=== PATIENT | female | born 1970 | race Caucasian/White ===

== ENCOUNTER 2019-12-22 20:38 | Inpatient (IN) | payer OTHER ==
--- OUTSIDE RECORDS SUMMARY | 2019-12-22 20:40 | XMS REPORT | Clinical Summary ---
:1970 Author Organization [facility] Address [address] [place] [address] Care Team Providers Name Role Phone Marcio MurrayLily Primary Care Provider Unavailable Allergies Active Allergy Reactions Severity Noted Date Comments Penicillins Rash Low 08/15/2016 Medications Medication Sig Dispensed Refills Start Date End Date Status sitaGLIPtin-metFORM Take 1 tablet by 0 Active IN (JANUMET) mouth 2 (two) times 50-1,000 mg per daily with breakfast tablet and dinner. amLODIPine Take 5 mg by mouth 0 Active (NORVASC) 10 MG daily. tablet pravastatin Take 20 mg by mouth 0 Active (PRAVACHOL) 20 MG daily. tablet DULoxetine Take 30 mg by mouth 0 Active (CYMBALTA) 30 MG daily. capsule insulin detemir Inject subcutaneously 0 Active (LEVEMIR) 100 nightly. unit/mL (3 mL) InPn injection fluconazole Take 150 mg by mouth 0 Active (DIFLUCAN) 150 MG once. tablet traMADol (ULTRAM) Take 50 mg by mouth 0 Active 50 mg tablet every 6 (six) hours as needed for Pain. celecoxib Take 200 mg by mouth 0 Active (CELEBREX) 200 MG daily. capsule gabapentin Take 300 mg by mouth 0 Active (NEURONTIN) 300 MG 3 (three) times capsule daily. acetaminophen-codei Take 1 tablet by 30 tablet 0 08/17/2016 Active ne (TYLENOL #3) mouth every 4 (four) 300-30 mg per hours as needed for tablet Pain. Max Daily Amount: 6 tablets Active Problems Problem Noted Date Infective otitis externa, left 08/15/2016 Diabetes mellitus Hypertension Hyperlipidemia Social History Tobacco Use Types Packs/Day Years Used Date Never Smoker Alcohol Use Drinks/Week oz/Week Comments No Sex Assigned at Date Recorded Not on file Job Start Date Occupation Industry Not on file Not on file Not on file Travel History Travel Start Travel End No recent travel history available. Last Filed Vital Signs Not on file Plan of Treatment Not on file Results Not on fileafter 12/21/2018 Insurance Payer Benefit Plan / Group Subscriber ID Type Phone A ddress [employer] - [employer] C[employer] HMO POS QPOS xxxxxxxxxx HMO/POS Advance Directives For more information, please contact:[address] [phone] Code Status Date Activated Date Inactivated Comments Full Code 08/15/2016 5:48 PM 08/17/2016 5:52 PM This code status was determined by: Patient
--- OUTSIDE RECORDS SUMMARY | 2019-12-22 20:45 | XMS REPORT | Continuity of Care Document ---
:1970 Author Organization [facility] t Address [address] [place] [address] Care Team Providers Name Role Phone Artemio Murray Primary Care Physician Unavailable DR AISLINN Attending Clinician Unavailable Kale Hilliard Attending Clinician William Mckeon Attending Clinician Ayaka Thornton Attending Clinician MOMO Attending Clinician Unavailable Dennis Pink Attending Clinician DR JOESPH Attending Clinician Unavailable Levar Carney Attending Clinician Artemio Francois Attending Clinician DR AISLINN Admitting Clinician Unavailable DR JOESPH Admitting Clinician Unavailable Problems Condition Condition Condition Status Onset Resolution Last Treating Co mments Source Name Details Category Date Date Treatment Clinician Date PELVIC Diagnosis Active 2019-11-02 Mem oria FLOOR 07-16 16:21:00 l PELVIC 08:00: Luis Antonio FLOOR 00 [facility] Diagnosis Active 2018-072019-06-18 Mem oria FLOOR 08-06 13:00:00 l DYSPAREUNI PELVIC 08:00: Herm ramon A,VAGINISM FLOOR 00 US,IBS, DYSPAREUNI A,VAGINISM US,IBS, Active 06/06/2019 [facility] MUS[facility] Diagnosis Active 2019-07-31 Mem oria WEAKNESS - 10:57:00 l MUSCLE 08:00: Luis Antonio WEAKNESS 00 Active 07/16/2018 [facility] Z01.818 - Diagnosis Active 2017-072018-06-10 Memoria ENCOUNTER 07-31 10:54:00 l FOR OTHER Z01.818 00:01: Herm ramon PREPROCEDU - 00 ENCOUNTER FOR OTHER PREPROCEDU Active 05/31/2018 LE[facility] [place] [facility] Disease Active [facility] ot[facility] 08[facility]15 [facility] externa, [facility]: Medica l left left 00 Center KNEE PAIN, Condition Active 2015-01-13 Memoria BILATERAL 01-13 11:20:00 l KNEE 00:00: [place] PAIN, 00 BILATERAL Active 01/13/2015 [facility] ARTHRALGIA Condition Active 2015-01-13 Memoria 01-13 11:20:00 l 00:00: Luis Antonio ARTHRALGIA 00 Active 01/13/2015 [facility] RASH Condition Active 2015-01-13 Mem oria 01-13 11:20:00 l RASH 00:00: Luis Antonio 00 Active 01/13/2015 [facility] SYSTEMIC Condition Active 2015-01-13 M emoria LUPUS 01-13 11:20:00 l ERYTHEMATO SYSTEMIC 00:00: He rmann MARLEY, LUPUS 00 FAMILY HX ERYTHEMATO MARLEY, FAMILY HX Active 01/13/2015 [facility] URINALYSIS Condition Active 2015-01-13 Memoria , ABNORMAL 12-14 11:20:00 l 00:00: Luis Antonio URINALYSIS 00 , ABNORMAL Active 12/14/2014 [facility] ALLERGIC Condition Active 2015-01-13 M emoria DRUG 11-16 11:20:00 l REACTION ALLERGIC 00:00: Herm ramon DRUG 00 REACTION Active 11/16/2014 [facility] IMPETIGO Condition Active 2015-01-13 M emoria 11-09 11:20:00 l IMPETIGO 00:00: Satish n 00 Active 11/09/2014 [facility] Allergic Problem Active 2019-11-17 Mem oria rhinitis 3 22:07:53 l (disorder) Allergic 00:00: He rmann rhinitis 00 (disorder) Active 10/13/2014 Problem 11/17/2019 Data migrated from [employer] on 01/20/15.Kobe a migrated from [employer] on 12/15/14. Medical Group,[facility], LEELA Harris,M [facility] [place] [facility] Migraine Problem Active 2019-11-17 Mem oria (disorder) 10-13 22:07:53 l Migraine 00:00: Satish n (disorder) 00 Active 10/13/2014 Problem 11/17/2019 Data migrated from [employer] on 01/20/15.Kobe a migrated from [employer] on 12/15/14. Medical Group,[facility], LEELA Harris,M [facility] [place] [facility] Postsurgic Problem Active 2019-11-17 M emoria al 10-13 22:07:53 l menopause 00:00: Luis Antonio (disorder) Postsurgic 00 al menopause (disorder) Active 10/13/2014 Problem 11/17/2019 Data migrated from [employer] on 01/20/15.Kobe a migrated from [employer] on 12/15/14. Medical Group,[facility], LEELA Harris,[facility] [place] [facility] SURGICAL Condition Active 2015-01-13 M emoria MENOPAUSE 10-13 11:20:00 l SURGICAL 00:00: Satish n MENOPAUSE 00 Active 10/13/2014 Condition 5 [facility] MIGRAINE Condition Active 2015-01-13 M emoria HEADACHE 10-13 11:20:00 l MIGRAINE 00:00: Satish n HEADACHE 00 Active 10/13/2014 Condition [facility] ALLERGIC Condition Active 2015-01-13 M emoria RHINITIS 10-13 11:20:00 l ALLERGIC 00:00: Satish n RHINITIS 00 Active 10/13/2014 Condition 5 [facility] Fatigue Problem Active 2013-072019-11-17 John maria elena (finding) 22:07:53 l Fatigue 00:00: Luis Antonio (finding) 00 Active 07/15/2014 Problem 11/17/2019 Data migrated from [employer] on 12/15/14. Medical Group,[facility], LEELA Harris,[facility] [place] [facility] FATIGUE Condition Active 2013-072015-01-13 Me moria 11:20:00 l FATIGUE 00:00: Luis Antonio 00 Active 07/15/2014 Condition 5 [facility] Angle-clos Problem Active 2019-11-17 M emoria ure 07-30 22:07:53 l glaucoma 00:00: [place] (disorder) Angle-clos 00 ure glaucoma (disorder) Active 07/30/2013 Problem 11/17/2019 Data migrated from [employer] on 12/15/14. Medical Group,[facility], LEELA Harris,[facility] [place] [facility] Hypertensi Problem Active 2019-11-17 M emoria ve 07-30 22:07:53 l disorder, 00:00: Luis Antonio systemic Hypertensi 00 arterial ve (disorder) disorder, systemic arterial (disorder) Active 07/30/2013 Problem 11/17/2019 Data migrated from [employer] on 12/15/14. [facility] [place] [facility] ANGLE-CLOS Condition Active 2015-01-13 Memoria URE 07-30 11:20:00 l GLAUCOMA 00:00: Luis Antonio ANGLE-CLOS 00 URE GLAUCOMA Active 07/30/2013 Condition 5 [facility] HYPERTENSI Condition Active 2015-01-13 Memoria ON 07-30 11:20:00 l 00:00: [place] HYPERTENSI 00 ON Active 4 Condition 01/13/2015 Medical Group Anemia Problem Active 2012-072019-11-17 Memor ia (disorder) 0-03 22:07:53 l Anemia 00:00: Luis Antonio (disorder) 00 Active 04/17/2013 Problem 11/17/2019 Data migrated from [employer] on 12/15/14. [facility] Group,[facility], LEELA Harris,[facility] [place] [facility] Brachial Problem Active 2012-072019-11-17 Mem oria neuritis 0-03 22:07:53 l (disorder) Brachial 00:00: He rmann neuritis 00 (disorder) Active 04/17/2013 Problem 11/17/2019 Data migrated from [employer] on 12/15/14. Medical Group,[facility] [place] [facility] Hyperlipid Problem Active 2012-072019-11-17 M emoria emia 0-03 22:07:53 l (disorder) 00:00: Satish n Hyperlipid 00 emia (disorder) Active 04/17/2013 Problem 11/17/2019 Data migrated from [employer] on 12/15/14. Medical Group,[facility], LEELA Harris,[facility] [place] [facility] Type II Problem Active 2012-072019-11-17 John maria elena diabetes 0-03 22:07:53 l mellitus Type II 00:00: Анна nn uncontroll diabetes 00 ed mellitus (finding) uncontroll ed (finding) Active 04/17/2013 Problem 11/17/2019 Data migrated from [employer] on 12/15/14. Medical Group,[facility], LEELA Harris,[facility] [place] [facility] DIABETES Condition Active 2012-072015-01-13 M emoria MELLITUS, 0-03 11:20:00 l TYPE II, DIABETES 00:00: Herm ramon UNCONTROLL MELLITUS, 00 ED TYPE II, UNCONTROLL ED Active 3 Condition 01/13/2015 Medical Group BRACHIAL Condition Active 2012-072015-01-13 M emoria NEURITIS 0-03 11:20:00 l OR BRACHIAL 00:00: Satish n RADICULITI NEURITIS 00 S NOS OR RADICULITI S NOS Active 04/17/2013 Condition [facility] HYPERLIPID Condition Active 2012-072015-01-13 Memoria EMIA 0-03 11:20:00 l 00:00: Luis Antonio HYPERLIPID 00 EMIA Active 04/17/2013 Condition [facility] SHOULDER Condition Active 2012-072015-01-13 M emoria PAIN, 0-03 11:20:00 l CHRONIC SHOULDER 00:00: Анна nn PAIN, 00 CHRONIC Active 04/17/2013 Condition [facility] ANEMIA Condition Active 2012-072015-01-13 Mem oria 0-03 11:20:00 l ANEMIA 00:00: [place] 00 Active 04/17/2013 Condition 5 [facility] History of History of Problem Resolve Univers diabetes diabetes d ity of mellitus mellitus [place] [facility] History of History of Problem Resolve Univers high high d ity [place] cholester[place] [facility] History of History of Problem Resolve Univers hypertensi hypertensi d it y of on on [place] [facility] History of History of Problem Resolve Univers hypothyroi hypothyroi d it y of dism dism [place] [facility] History of History of Problem Resolve Univers Nerve pain Nerve pain d it y of [place] [facility] History of History of Problem Resolve Univers obesity obesity d ity of [place] [facility] Urinary Urinary Problem Active Univers incontinen incontinen it y of ce in ce in [place] female female Physici ans Urinary Urinary Problem Active Univers symptom or symptom or it y of sign sign [place] [facility] Urgency of Urgency of Problem Active U nivers urination urination ity of [place] [facility] Urgency Urgency Problem Active Univers incontinen incontinen it y of ce ce [place] [facility] Frequency Frequency Problem Active Uni vers of of [place] of [place] [facility] [place] Nocturia Nocturia Problem Active Unive rs ity of [place] [facility] Dyspareuni Dyspareuni Problem Active U nivers a, female a, female ity of [place] [facility] Pelvic Pelvic Problem Active Univers floor floor ity of dysfunctio [place]funct[place] [facility] Levator Levator Problem Active Univers spasm spasm ity of [place] [facility] Irritable Irritable Problem Active Uni vers bowel bowel ity of syndrome syndrome [place] with both with both Phys ici constipati constipati an s on and on and diarrhea diarrhea Diabetes Diabetes Disease Active [facility] mellitus mellitus [facility] Encounter Problem 2018-12-29 [place] for 11:13:36 l screening [place] mammogram Encounter for for malignant screening neoplasm mammogram of breast for malignant neoplasm of breast 12/29/2018 LEELA Harris Breast Problem Resolve 2019-11-17 John maria elena neoplasm d 22:07:53 l screening Breast Анна nn status neoplasm (finding) screening status (finding) Resolved Problem 11/17/2019 Medical Group, Courtney Patel [facility] Neutrophil Problem Resolve 2019-11-17 Memoria ia d 22:07:53 l (disorder) Satish n Neutrophil ia (disorder) Resolved Problem 11/17/2019 Medical Group, Courtney Patel [facility] [place] [facility] Patient Problem Resolve 2019-11-17 Mem oria encounter d 22:07:53 l status Patient Luis Antonio (finding) encounter status (finding) Resolved Problem 11/17/2019 Medical Group, LEELA Harris,[facility] [place] [facility] Sinusitis Problem Resolve 2019-11-17 M emoria (disorder) d 22:07:53 l Luis Antonio Sinusitis (disorder) Resolved Problem 11/17/2019 Medical Group, LEELA Harris,[facility] [place] [facility] Morbid Problem Active 2019-11-17 Memor ia obesity 22:07:53 l (disorder) Morbid Herm ramon obesity (disorder) Active Problem 11/17/2019 Medical Group, [facility] [place] [facility] Weight Problem Active 2019-11-17 Memor ia gain 22:07:53 l finding Weight Luis Antonio (finding) gain finding (finding) Active Problem 11/17/2019 Medical Group, [facility] [place] [facility] Chronic Problem Active 2019-11-17 John maria elena pain 22:07:53 l (finding) Chronic Herm ramon pain (finding) [facility]17[facility] [place] [facility] Hypothyroi Problem Active 2019-11-17 M emoria dism 22:07:53 l (disorder) Satish n Hypothyroi dism (disorder) Active Problem 11/17/2019 Medical Group 719.46 Diagnosis Active 2015-01-13 Mem oria 09:57:00 l 719.46 Luis Antonio Active [facility] Allergies, Adverse Reactions, Alerts Allergy Allergy Status Severity Reaction(s) Onset Inactive Treating Comm ents Source Name Type Date Date Clinician Penicill Drug Active Rash [facility] cephalex cephalex Active Memori a in<sup>2 in<sup>2 3-31 l </sup> </sup> 05:00: [place] CEPHALEX CEPHALEX Active Memori a IN IN 3-31 l 00:00: [place] penicill penicill Active 2012-07 Memori a ins<sup> ins<sup> 0-03 l 1</sup> 1</sup> 05:00: [place] PCN PCN Active 2012-07 Memoria 0-03 l 00:00: Luis Antonio 00 Penicill drug Active Univers ins allergy ity of [place] [facility] clindamy drug Active Univers kelle allergy ity of [place] [facility] Family History Family Member Diagnosis Comments Start Date Stop Date Source Unknown Family Family history of Family History University of Member arthritis [place] [facility] Social History Social Habit Start Date Stop Date Quantity Comments Source Sex Assigned At [facility] Social History 2015-01-14 2015-01-14 [facility] 04:59:00 04:59:00 Smoking Status Start Date Stop Date Source Social History [facility] Medications Ordered Filled Start Stop Current Ordering Indication Dosage Frequency Signature Comments Components Source Medication Medication Date Date Medication? Clinician (SIG) Name Name 3 ML 2019-0 Yes 25 unit, Memoria insulin 5-01 SUB-Q, l detemir 100 19:18: Bedtime, # [place] UNT/ML 00 15 mL, 3 Prefilled Refill(s), Syringe Pharmacy: [Levemir] [facility] #[id number] 24 HR 2019-0 Yes 50 mg = 1 Memoria mirabegron 3-25 tab, PO, l 50 MG 13:00: Daily, per Satish n Extended 00 urogyn, # Release 30 tab, 0 Tablet Refill(s) [Myrbetriq] levothyroxi 2019-0 Yes 75 Memori a ne 75 mcg 3-25 microgram l (0.075 mg) 12:56: = 1 tab, Her oates oral tablet 00 PO, Daily, # 90 tab, 1 Refill(s), Pharmacy: [facility] #[id number] Metformin 2020-0 Yes 1 tab, PO, Me moria hydrochlori 3-25 BID, # 180 l de 1000 MG 12:56: tab, 1 Анна nn / 00 Refill(s), sitagliptin Pharmacy: 50 MG Oral [facility] [Froylanumet #[id number] ] pravastatin 2020-0 Yes 20 mg = 1 M emoria 20 mg oral 3-25 tab, PO, l tablet 12:56: Bedtime, # Анна nn 00 90 tab, 3 Refill(s), Pharmacy: [facility] #[id number] 3 ML 2019-0 Yes 25 units, Memoria Insulin 3-25 SUB-Q, l Glargine 12:55: Bedtime, # Her oates 100 UNT/ML 00 10 ea, 3 Prefilled Refill(s), Syringe Pharmacy: [Lantus] [facility] #[id number] 0.5 ML 2019- Yes 1.5 mg, Memoria dulaglutide 3-25 SUB-Q, l 3 MG/ML 12:54: qWeek, # 6 Herm ramon Prefilled 00 mL, 1 Syringe Refill(s), [Trulicity] Pharmacy: [facility] #[id number] benazepril Yes 20 mg = 1 Me moria 20 mg oral 3-25 tab, PO, l tablet 12:54: Daily, # [place] 00 90 tab, 1 Refill(s), Pharmacy: [facility] #[id number] Myrbetriq Myrbetriq 2018-07 Yes GLENN QD TAKE 1 U nivers 50 MG Oral 50 MG Oral 2-27 DOUGHER TABLET ity of Tablet Tablet 00:00: D.O. DAILY [place] Extended Extended Physici Release 24 Release 24 ans Hour Hour Trokendi XR Trokendi XR 2018-07 Yes Univers 50 MG Oral 50 MG Oral 1-13 ity of Capsule Capsule 00:00: [place] Extended Extended 00 Physici Release 24 Release 24 ans Hour Hour Horizant Horizant 2018-07 Yes Unive rs 600 MG Oral 600 MG Oral 13 i ty of Tablet Tablet 00:00: [place] Extended Extended 00 Physici Release Release ans oxyCODONE-A oxyCODONE-A 2018-07 Yes Univers cetaminophe cetaminophe 13 i ty of n 5-325 MG n 5-325 MG 00:00: [place] Oral Tablet Oral Tablet 00 P hysici ans Janumet Janumet 2018-07 Yes Univers 50-1000 MG 50-1000 MG -13 ity of Oral Tablet Oral Tablet 00:00: [place] 00 Physici ans Lantus Lantus 2018-07 Yes Univers SoloStar SoloStar 13 ity of 100 UNIT/ML 100 UNIT/ML 00:00: [place] Subcutaneou Subcutaneou 00 P hysici s Solution s Solution ans Pen-injecto Pen-injecto r r Trulicity Trulicity 2018-07 Yes Uni vers 1.5 1.5 1-13 ity of MG/0.5ML MG/0.5ML 00:00: [place] Subcutaneou Subcutaneou 00 P hysici s Solution s Solution ans Pen-injecto Pen-injecto r r Pravastatin Pravastatin 2018-07 Yes Univers Sodium 20 Sodium 20 07-28 ity o f MG Oral MG Oral 00:00: [place] Tablet Tablet 00 Physici ans Benazepril Benazepril 2018-07 Yes U nivers HCl - 10 MG HCl - 10 MG 07-28 i ty of Oral Tablet Oral Tablet 00:00: [place] 00 Physici ans Levothyroxi Levothyroxi 2018-07 Yes Univers ne Sodium ne Sodium 07-28 ity o f 75 MCG Oral 75 MCG Oral 00:00: [place] Tablet Tablet 00 Physici ans Phentermine Phentermine 2018-07 Yes Univers HCl - 37.5 HCl - 37.5 07-28 ity of MG Oral MG Oral 00:00: [place] Capsule Capsule 00 Physici ans DULoxetine DULoxetine 2018-07 Yes U nivers HCl - 30 MG HCl - 30 MG 07-28 i ty of Oral Oral 00:00: [place] Capsule Capsule 00 Physici Delayed Delayed ans Release Release Particles Particles Acetaminoph 2018-07 Yes 1 tab, PO, Memoria en 325 MG / 0-30 Q6H, 0 l Oxycodone 16:41: Refill(s) Her oates Hydrochlori 00 de 5 MG Oral Tablet gabapentin 2018-07 Yes 600 mg = 1 M emoria enacarbil 0-30 tab, PO, l 600 MG 16:41: Daily, # Luis Antonio Extended 00 90 tab, 1 Release Refill(s) Tablet [Horizant] Ketorolac 2018-07 Yes = 1 spray, Me moria Tromethamin 0-30 NASAL, l e 15.8 16:41: Q12H, 0 [place] MG/ACTUAT 00 Refill(s) Metered Dose Nasal [place] [Sprix] levothyroxi Yes 75 Memori a ne 75 mcg 9-27 microgram l (0.075 mg) 21:07: = 1 tab, Her oates oral tablet 00 PO, Daily, # 90 tab, 1 Refill(s), Pharmacy: [facility] #[id number] pravastatin Yes 20 mg = 1 M emoria 20 mg oral 9-25 tab, PO, l tablet 12:50: Bedtime, # Анна nn 59 90 tab, 3 Refill(s), Pharmacy: [facility] #[id number] Phentermine Yes 37.5 mg = Courtney poe Hydrochlori 9-25 1 tab, PO, l de 37.5 MG 12:50: Daily, X Her oates Oral Tablet 00 90 day, # 90 tab, 1 Refill(s) 3 ML Yes See Memoria Insulin 4-12 Instructio l Glargine 21:12: ns, # 3 Satish n 100 UNT/ML 13 mL, Prefilled ADMINISTER Syringe 20 UNITS [Lantus] UNDER THE SKIN AT NIGHT AND AT BEDTIME, Pharmacy: [facility] [id number] DME Yes See Memoria Prescriptio 1-03 Instructio l n 13:28: ns, MISC, [place] 00 ONCE, disability parking placard use for designated parking, # 2 ea, 0 Refill(s) Azithromyci 2017-07 No See Memori a n 5 Day 2-05 Instructio l Dose Pack 16:44: ns, Take 2 He rmann 250 mg oral 00 tablets by tablet mouth the first day then 1 tablet by mouth days 2-5., X 5 day, # 6 tab, 0 Refill(s), [id number] {2017-07 Yes See Memoria (Methylpred 2-05 Instructio l nisolone 4 16:44: ns, PO, Herm ramon MG Oral 00 Take by Tablet mouth as [Medrol]) } directed Pack on label., [Medrol # 1 Pack, Dosepak] 0 Refill(s), [id number] Acetaminoph 2017-07 Yes 1 tab, PO, Memoria en 325 MG / 2-05 Q8H, PRN l Hydrocodone 15:47: Pain, # 30 Luis Antonio Bitartrate 00 tab, 0 10 MG Oral Refill(s) Tablet pravastatin 2017-07 Yes See Memori a 20 mg oral 1-30 Instructio l tablet 04:45: ns, TAKE 1 Анна nn 00 TABLET BY MOUTH EVERY DAY, # 90 tab, 3 Refill(s), Pharmacy: [facility] [id number] Insulin Pen 2017-07 Yes 1 ea, Memor ia [place] 1-16 MISC, l Misc/Other 20:37: Daily, for H ermann 00 use with lantus, # 100 ea, 1 Refill(s), [id number] 3 ML 2017-07 No 20 unit, Memoria Insulin 1-16 SUB-Q, l Glargine 20:37: Bedtime, # Her oates 100 UNT/ML 00 3 mL, 3 Prefilled Refill(s), Syringe Pharmacy: [Lantus] [facility] [id number] duloxetine 2017-07 Yes 90 mg = 3 Me moria 30 MG 1-16 cap, PO, l Enteric 20:21: Daily, # Satish n Coated 00 180 cap, 0 Capsule Refill(s) [Cymbalta] Naloxone 2017-07 Yes = 1 spray, Mem oria Hydrochlori 1-16 NASAL, l de 40 MG/ML 20:21: ONCE, # 2 H ermann Nasal [place] 00 spray, 0 [Narcan] Refill(s), may repeat in other nostril if patient does not respond tramadol 2017-07 Yes 50 mg = 1 John maria elena hydrochlori 1-16 tab, PO, l de 50 MG 20:21: BID, # 180 Her oates Oral Tablet 00 tab, 1 Refill(s) acetaminoph 2017-07 Yes 2 tab, PO, Memoria en-codeine 1-16 Q6H, PRN l #3 20:21: for pain, [place] 00 # 30 tab, 0 Refill(s) 24 HR 2017-07 Yes 100 mg = 2 Memori a topiramate 1-16 cap, PO, l 50 MG 20:21: Daily, 0 [place] Extended 00 Refill(s) Release Capsule [Trokendi] Metformin Yes 1 tab, PO, Me moria hydrochlori 6-15 BID, # 60 l de 1000 MG 15:41: tab, 0 Анна nn / 00 Refill(s), sitagliptin Pharmacy: 50 MG Oral [facility] [Janumet [id number] ] benazepril Yes 10 mg = 1 Me moria 10 mg oral 5-29 tab, PO, l tablet 21:53: Daily, for Анна nn 00 blood pressure and for kidneys, # 90 tab, 1 Refill(s), Pharmacy: [email or web address] [id number] 0.5 ML Yes 1.5 mg, Memoria dulaglutide 5-24 SUB-Q, l 3 MG/ML 14:54: qWeek, # Satish n Prefilled 00 12 ea, 3 Syringe Refill(s), [Trulicity] Pharmacy: [email or web address] [place] [id number] pravastatin Yes See Memori a 20 mg oral 5-22 Instructio l tablet 15:58: ns, # 90 Luis Antonio 14 tab, Refill(s) 1, TAKE 1 TABLET BY MOUTH EVERY DAY, Pharmacy: [email or web address] Metformin Yes See Memoria hydrochlori 4-12 Instructio l de 1000 MG 15:33: ns, # 60 Her oates / 56 tab, TAKE sitagliptin 1 TABLET 50 MG Oral BY MOUTH Tablet TWICE [Janumet DAILY( ] EVERY TWELVE HOURS), Pharmacy: [email or web address] [place] [id number] amLODIPine Yes See Memoria 5 mg oral 2-16 Instructio l tablet 14:58: ns, # 90 [place] 40 tab, TAKE 1 TABLET BY MOUTH EVERY DAY, Pharmacy: [email or web address] pravastatin No See Memori a 20 mg oral 2-15 Instructio l tablet 14:42: ns, # 90 [place] 21 tab, TAKE 1 TABLET BY MOUTH EVERY DAY, Pharmacy: [email or web address] [address] acetaminoph Yes 1{tbl} Take [address] en-codeine 2-02 tablet by Leticiake s - (TYLENOL 00:00: mouth Medical #3) 300-30 00 every 4 Center mg per (four) tablet hours as needed for Pain. Max Daily Amount: 6 tablets traMADol Yes 50mg Take [address] [facility] (ULTRAM) 50 2-01 by mouth Luke s - mg tablet 01:40: every 6 Medic al 42 (six) Center hours as needed for Pain. celecoxib 2017 Yes 200mg QD Take [address] (CELEBREX) 2-01 mg by [facility] - 200 MG 01:40: mouth Medical capsule 42 daily. Center gabapentin Yes 300mg [id number] Take [address] (NEURONTIN) 2-01 [id number] mg by L ukes - 300 MG 01:40: 3D mouth 3 Medical capsule 42 (three) Center times daily. sitaGLIPtin Yes 1{tbl} Take [address] -metFORMIN 1-31 tablet by Luke s - (JANUMET) 14:39: mouth 2 Medic al 50-1,000 mg 02 (two) Center per tablet times daily with breakfast and dinner. amLODIPine Yes 5mg QD Take [address] (NORVASC) 1- by mouth [facility] - 10 MG 14:39: daily. Medical tablet 02 Center pravastatin Yes 20mg QD Take [address] (PRAVACHOL) - by mouth Luke s - 20 MG 14:39: daily. Medical tablet 02 Center DULoxetine Yes 30mg QD Take [address] (CYMBALTA) 08-15 by mouth [facility] - 30 MG 14:39: daily. Medical capsule 02 Center insulin Yes QD Inject [facility] detemir 1-31 subcutaneo [facility] - (LEVEMIR) 14:39: usly Medical 100 unit/mL 02 nightly. Cent er (3 mL) InPn injection fluconazole Yes 150mg Take [address] (DIFLUCAN) 1-31 mg by [facility] - 150 MG 14:39: mouth Medical tablet 02 once. [place] BACTRIM DS Yes 1 tablet Mem oria 800-160 MG 7-01 twice l TABS 00:00: daily for Luis Antonio 00 infection JANUMET XR Yes 1 tablet Mem oria 50-1000 MG 5-29 BID l [id number] 00:00: [place] LEVEMIR Yes 50 units Memori a FLEXTOUCH 5-04 every l 100 UNIT/ML 00:00: night Анна nn SOPN 00 BD PEN Yes use as Memoria NEEDLE MINI 5-04 directed l U/F 31G X 5 00:00: once Satish barreto MM MISC 00 daily- compatible with Levemir Flextouch pen AMLODIPINE Yes 1 tablet Mem oria BESYLATE 5 5-04 at night l MG TABS 00:00: Luis Antonio BD PEN Yes use as Memoria NEEDLE MINI 5-04 directed l U/F 31G X 5 00:00: once Satish n MM MISC 00 daily- compatible with Levemir Flextouch pen AMLODIPINE Yes 1 tablet Mem oria BESYLATE 5 5-04 at night l MG TABS 00:00: BACTRIM DS No 1 tablet Mem oria 800-160 MG 4-27 twice l TABS 00:00: daily for [place] 00 infection HYDROXYZINE No 1 tablet 4 Memoria HCL 10 MG 4-27 times l TABS 00:00: daily as needed for itching DIFLUCAN No 1 tablet x Mem oria 150 MG TABS 4-27 1 dose, l 00:00: repeat in 1 wk if needed HYDROXYZINE No 1 tablet 4 Memoria HCL 10 MG 4-27 times l TABS 00:00: daily as needed for itching ERGOCALCIFE No 1 capsule M emoria ROL 75921 4-01 weekly x 8 l UNIT CAPS 00:00: wks CELEBREX 2013-07 Yes one pill Memor ia 200 MG CAPS 2-31 daily-Dr. alexander 00:00: Joesph Salmon TRAMADOL 2013-07 Yes one pill Memor ia HCL 50 MG 2-31 every l TABS 00:00: 6-8hours [place] 00 as needed for pain-Dr. Pink DULOXETINE 2013-07 Yes 3 pills John maria elena HCL 30 MG 2-31 every l CPEP 00:00: night-Dr. Luis Antonio Pink TOPIRAMATE 2013-07 Yes one pill Mem oria 50 MG TABS 2-31 three l 00:00: times daily-Dr. Pink LISINOPRIL- 2013-07 Yes 1 tablet Me moria HYDROCHLORO 2-31 daily l THIAZIDE 00:00: [place] 10-12.5 MG 00 TABS PRAVASTATIN 2013-07 Yes 1 tablet Me moria SODIUM 20 2-31 daily l MG TABS 00:00: TRAMADOL 2013-07 No one pill Memor ia HCL 50 MG 2-31 every l TABS 00:00: 6-8hours [place] 00 as needed for pain-Dr. Pink TOPIRAMATE 2013-07 Yes one pill Mem oria 50 MG TABS 2-31 three l 00:00: times [place] 00 daily-Dr. Pink LISINOPRIL- 2013-07 No 1 tablet Me moria HYDROCHLORO 2-31 daily l THIAZIDE 00:00: Luis Antonio 10-12.5 MG 00 TABS CELEBREX 2013-07 Yes one pill Memor ia 200 MG CAPS 2-31 daily-Dr. alexander 00:00: Pink Luis Antonio TOPIRAMATE 2013-07 Yes one pill Mem oria 50 MG TABS 2-31 three l 00:00: times daily-Dr. Pink TRAMADOL 2013-07 No one pill Memor ia HCL 50 MG 2-31 every l TABS 00:00: 6-8hours as needed for pain-Dr. Pink GLIMEPIRIDE No 1 PO QDay M emoria 4 MG TABS 1-15 (take with l 00:00: largest meal of the day) CYMBALTA 30 No i po TID Me moria MG CPEP 1-15 l 00:00: GLIMEPIRIDE No 1 PO QDay M emoria 4 MG TABS 1-15 (take with l 00:00: largest meal of the day) DIABETIC Yes check Memoria TEST 1-13 blood l STRIPS- 00:00: sugar BID Анна nn FREESTYLE 00 DIABETIC Yes check Memoria TEST 1-13 blood l STRIPS- 00:00: sugar BID Анна nn ACCUCHECK 00 DAREN ANTARA 130 2012-07 No 1 PO QDay Me moria MG CAPS 0-21 l 00:00: GLUCOMETER 2012-07 Yes use as Memor ia 0-18 directed l 00:00: Luis Antonio 00 DIABETIC 2012-07 Yes check FSG John maria elena LANCETS 0-18 BID l 00:00: JANUMET XR 2012-07 No 1 PO BID Mem oria 50-1000 MG 0-03 l [id number] 00:00: LISINOPRIL 2012-07 No 1 po qd John maria elena 20 MG TABS 0-03 l 00:00: Luis Antonio 00 PRAVASTATIN 2012-07 No 1 po qd Mem oria SODIUM 40 0-03 l MG TABS 00:00: LISINOPRIL 2013-1 No 1 po qd John maria elena 20 MG TABS 0-03 l 00:00: [place] 00 Vital Signs Vital Name Observation Time Observation Value Comments Source BP Systolic 2019-07-11 136 mm[Hg] Location: [facility] 11:08:00 Position: [place] [facility] BP Diastolic 2019-07-11 80 mm[Hg] Location: [facility] 11:08:00 Position: [place] [facility] Height 2019-07-11 62 [in_us] [facility] 11:08:00 [place] [facility] Weight 2019-07-11 253 [lb_av] University 11:08:00 [place] [facility] Body Mass Index 2019-07-11 46.27 kg/m2 University o f Calculated 11:08:00 [place] [facility] Temperature 2019-07-11 98.1 [degF] Method: Oral [facility] 11:08:00 [place] [facility] BP Systolic 2019-05-28 140 mm[Hg] Location: [facility] 11:46:00 Position: [place] [facility] BP Diastolic 2019-05-28 82 mm[Hg] Location: [facility] 11:46:00 Position: [place] [facility] Height 2019-05-28 62 [in_us] University 11:46:00 [place] [facility] Weight 2019-05-28 255 [lb_av] University 11:46:00 [place] [facility] Body Mass Index 2019-05-28 46.64 kg/m2 University o f Calculated 11:46:00 [place] [facility] Temperature 2019-05-28 98.2 [degF] Method: Oral [facility] 11:46:00 [place] [facility] s Systolic (mm Hg) 2019-05-14 [facility] rmann 16:38:00 Diastolic (mm Hg) 2019-05-14 [facility] ermann 16:38:00 Heart Rate 2019-05-14 [facility] Satish n 16:38:00 Temperature Oral 2019-05-14 98.6 F [facility] rmann (F) 16:38:00 Height 2019-05-14 157.48 cm [facility] Satish n 16:38:00 Weight 2019-05-14 [facility] Satish n 16:38:00 BMI Calculated 2019-05-14 [facility] Herm ramon 16:38:00 Systolic (mm Hg) 2019-04-09 [facility] rmann 12:16:00 Diastolic (mm Hg) 2019-04-09 [facility] 12:16:00 Heart Rate 2019-04-09 [facility] n 12:16:00 Respitory Rate 2019-04-09 [facility] ramon 12:16:00 Temperature Oral 2019-04-09 98.5 F [facility] (F) 12:16:00 Height 2019-04-09 157.48 cm [facility] n 12:16:00 Weight 2019-04-09 [facility] n 12:16:00 BMI Calculated 2019-04-09 [facility] ramon 12:16:00 BMI Calculated 2018-06-19 [facility] ramon 15:40:00 Height 2018-06-19 157.48 cm [facility]ish n 15:40:00 Weight 2018-06-19 [facility] n 15:40:00 Systolic (mm Hg) 2018-06-19 [facility] 15:40:00 Diastolic (mm Hg) 2018-06-19 [facility] 15:40:00 Heart Rate 2018-06-19 [facility] n 15:40:00 Temperature Oral 2018-06-19 98.0 F [facility] (F) 15:40:00 Systolic (mm Hg) 2018-05-31 [facility] 20:17:00 Diastolic (mm Hg) 2018-05-31 [facility] 20:17:00 Height 2018-05-31 157.48 cm [facility] n 20:17:00 Weight 2018-05-31 [facility] 20:17:00 BMI Calculated 2018-05-31 [facility] ramon 20:17:00 Temperature Oral 2018-05-31 98.4 F [facility] (F) 20:17:00 Heart Rate 2018-05-31 [facility] n 20:17:00 Weight 2018-01-11 [facility] n 20:14:00 BMI Calculated 2018-01-11 [facility] ramon 20:14:00 Height 2018-01-11 157.48 cm [facility]ish n 20:14:00 Temperature Oral 2018-01-11 98.1 F [facility] (F) 20:14:00 Heart Rate 2018-01-11 [facility] n 20:14:00 Systolic (mm Hg) 2018-01-11 [facility] 20:14:00 Diastolic (mm Hg) 2018-01-11 [facility] 20:14:00 Height 2017-12-11 157.48 cm [facility] n 21:28:00 BMI Calculated 2017-12-11 [facility] ramon 21:28:00 Weight 2017-12-11 [facility] n 21:28:00 Systolic (mm Hg) 2017-12-11 [facility] 21:28:00 Diastolic (mm Hg) 2017-12-11 [facility] 21:28:00 Heart Rate 2017-12-11 [facility] Satish n 21:28:00 Temperature Oral 2017-12-11 97.9 F [facility] (F) 21:28:00 Height 2015-01-13 [facility] n 13:09:02 Weight 2015-01-13 [facility] n 13:09:02 Temperature Oral 2015-01-13 97.7 F [facility] (F) 13:09:02 Heart Rate 2015-01-13 [facility] n 13:09:02 Systolic (mm Hg) 2015-01-13 [facility] 13:09:02 Diastolic (mm Hg) 2015-01-13 [facility] 13:09:02 Height 2014-11-16 [facility] n 15:40:31 Weight 2014-11-16 [facility] n 15:40:31 Temperature Oral 2014-11-16 96.2 F [facility] (F) 15:40:31 Heart Rate 2014-11-16 [facility] n 15:40:31 Systolic (mm Hg) 2014-11-16 [facility] 15:40:31 Diastolic (mm Hg) 2014-11-16 [facility] 15:40:31 Height 2014-11-09 [facility] n 18:16:31 Weight 2014-11-09 [facility] n 18:16:31 Temperature Oral 2014-11-09 97.8 F [facility] (F) 18:16:31 Heart Rate 2014-11-09 [facility] n 18:16:31 Systolic (mm Hg) 2014-11-09 [facility] 18:16:31 Diastolic (mm Hg) 2014-11-09 [facility] 18:16:31 Height 2014-10-13 [facility] n 13:34:12 Weight 2014-10-13 [facility] n 13:34:12 Systolic (mm Hg) 2014-10-13 [facility] 13:34:12 Diastolic (mm Hg) 2014-10-13 [facility] 13:34:12 Temperature Oral 2014-10-13 95.9 F [facility] (F) 13:34:12 Heart Rate 2014-10-13 [facility] n 13:34:12 Height 2014-07-15 [facility] n 13:49:41 Weight 2014-07-15 [facility] n 13:49:41 Systolic (mm Hg) 2014-07-15 [facility] 13:49:41 Diastolic (mm Hg) 2014-07-15 [facility] 13:49:41 Temperature Oral 2014-07-15 96.6 F [facility] (F) 13:49:41 Heart Rate 2014-07-15 [facility] n 13:49:41 Weight 2013-09-25 [facility] 17:51:21 Temperature Oral 2013-09-25 96.0 F [facility] (F) 17:51:21 Heart Rate 2013-09-25 [facility] n 17:51:21 Systolic (mm Hg) 2013-09-25 [facility] 17:51:21 Diastolic (mm Hg) 2013-09-25 [facility] 17:51:21 Weight 2013-07-30 [facility] n 15:36:02 Temperature Oral 2013-07-30 96.3 F [facility] (F) 15:36:02 Heart Rate 2013-07-30 [facility] n 15:36:02 Systolic (mm Hg) 2013-07-30 [facility] 15:36:02 Diastolic (mm Hg) 2013-07-30 [facility] 15:36:02 Height 2013-04-17 [facility] n 18:53:51 Weight 2013-04-17 [facility] n 18:53:51 Temperature Oral 2013-04-17 97.8 F [facility] (F) 18:53:51 Heart Rate 2013-04-17 [facility] n 18:53:51 Systolic (mm Hg) 2013-04-17 [facility] 18:53:51 Diastolic (mm Hg) 2013-04-17 [facility] 18:53:51 Procedures Procedure Date / Time Performing Clinician Source Performed [H] Urinalysis w/ 2019-05-28 00:00:00 [facility] Microscopic Physicians [QLH] CULTURE, URINE, 2019-05-28 00:00:00 [facility] ROUTINE Physicians [H] Culture 2019-05-28 00:00:00 [facility] [place] Ureaplasma/Mycoplasma Physicians hominis diabetic foot check 2013-04-17 18:53:51 Lorne Salmon mammogram 2012-01-14 18:02:17 Lorne oates vaginal Pap smear results 2011-07-16 14:30:11 Me mark Salmon History of Laparoscopic [facility] hysterectomy Physicians History of Epidural [facility] [place] steroid injection Physicians section Lorne Covarrubias n Cholecystectomy [facility] En[facility] Start End Encounter Admission Attending Care Care Encounter Source Date/Time Date/Time Type Type Clinicians Facility Department ID 2019-10-06 Inpatient C [facility]ISLINN [facility] [id number] [place] 09:42:00 [facility] 2019-09-25 Inpatient Chase TAO [facility] [id number] [facility] 13:25:00 [facility] 2019-12-01 2019-12-01 Outpatient Chase [facility] [id number] [place] 11:29:00 23:59:00 [facility] 2019-11-14 2019-11-15 Outpatient MHMG MHMG [id number] 13:53:44 23:59:59 23 2019-11-14 2019-11-15 Outpatient MHMG MHMG [id number] 13:40:35 23:59:59 22 2019-10-08 2019-10-09 Outpatient MHMG MHMG [id number] 07:34:19 07:34:19 31 2019-10-08 2019-10-08 Outpatient Hilliard, MG MHMG [id number] 07:15:00 23:59:59 Pee 12 [place] 2019-10-08 2019-10-08 Outpatient Linda, MHMG MHMG [id number] 07:15:00 07:15:00 Carmita 09 Jyotindra 2019-07-31 2019-08-29 Outpatient Momo [id number] 10:55:00 23:59:00 Glenn Marley [id number] 5.43 2019-06-18 2019-07-15 Outpatient Abundio [id number] 08:00:00 20:00:00 Glenn Marley [id number] 5.43 2019-07-11 2019-07-11 Appointmen MOMO [facility] Women's [id number] Univers 11:00:00 11:00:00 t; Jorge ELIZABETH [facility] Jorge ELIZABETH Physi ci ans 2019-06-30 2019-06-30 Outpatient Hilliard, MHMG MHMG [id number] 09:30:00 09:30:00 Pee 11 [place] 2019-06-25 2019-06-25 Appointmen MOMO [facility] [id number] Univers 10:10:00 10:10:00 t; Jorge ELIZABETH [place], [place] Jorge ELIZABETH Physi ci ans 2019-05-28 2019-05-28 Appointmen MOMO [facility] [id number] Univers 11:30:00 11:30:00 t; Jorge ELIZABETH [facility] Jorge ELIZABETH Physi ci ans 2019-05-14 2019-05-14 Outpatient Hilliard, MHMG MHMG [id number] 11:30:00 23:59:59 Pee 10 [place] 2019-05-01 2019-05-02 Outpatient MHMG MHMG [id number] 08:13:08 08:13:08 30 2019-04-10 2019-04-11 Outpatient MHMG MHMG [id number] 16:12:13 16:12:13 29 2019-04-09 2019-04-09 Outpatient Hilliard, MHMG MHMG [id number] 07:15:00 23:59:59 Pee 08 [place] 2018-09-03 2018-09-03 Outpatient Jocy Pink MHOIP MHOIP [id number] 19:29:00 23:59:00 Dennis 2018-06-19 2018-06-19 Outpatient Hilliard, MHMG MHMG [id number] 09:00:00 23:59:59 Pee 07 [place] 2018-06-19 2018-06-19 Outpatient Hilliard, MHMG MHMG [id number] 09:00:00 09:00:00 Pee [place] 2018-06-13 2018-06-14 Outpatient MHMG MHMG [id number] 15:37:00 23:59:59 21 2018-06-10 2018-06-10 Outpatient Babak MHOIP MHOIP [id number] 10:45:00 23:59:00 Pee [place] 2018-05-31 2018-05-31 Outpatient Babak MHMG MHMG [id number] 14:30:00 23:59:59 Pee [place] 2018-05-28 2018-05-29 Outpatient MHMG MHMG [id number] 15:53:00 23:59:59 20 2018-05-27 2018-05-28 Outpatient MHMG MHMG [id number] 17:47:00 23:59:59 19 2018-05-20 2018-05-21 Outpatient MHMG MHMG [id number] 16:50:00 23:59:59 18 2018-03-21 2018-03-21 Outpatient JOCY REZA [facility] 1 [id number] [facility] 12:01:00 15:44:00 [facility] [place] 2018-03-14 2018-03-14 Outpatient JOCY REZA [facility] 1 [id number] [place] 10:55:00 14:33:00 [facility] [place] 2018-01-11 2018-01-11 Outpatient Babak, MHMG MHMG [id number] 15:00:00 23:59:[address] 2017-12-27 2017-12-28 Outpatient MHMG MHMG [id number] 17:51:00 23:59:59 17 2017-12-11 2017-12-11 Outpatient Levar MHMG MHMG [id number] 16:30:00 23:59:59 Kody 03 2017-12-06 2017-12-07 Outpatient MHMG MHMG [id number] 08:42:00 23:59:59 15 2017-12-06 2017-12-07 Outpatient MHMG MHMG [id number] 08:42:00 23:59:59 16 2017-12-04 2017-12-05 Outpatient MHMG MHMG [id number] 10:40:00 23:59:59 14 2017-12-04 2017-12-05 Outpatient [facility] [id number] 10:37:00 23:59:59 13 2017-10-25 2017-10-26 Outpatient [facility] [id number] 07:49:00 23:59:59 12 2017-08-31 2017-09-01 Outpatient [facility] [id number] 08:02:00 23:59:59 11 2017-08-29 2017-08-30 Outpatient [facility] [id number] 15:08:00 23:59:59 10 2015-01-13 2015-01-[address] [facility] [id number] 09:56:00 23:59:00 Ann 82 On-Yin Results Test Description Test Time Test Comments Results Result Comments Source [[facility]] URINALYSIS, COMPLETE 2019-05-28 00:00:01 Test Item Value Reference Range Interpretation Comme nts UA Turbidity; Abnormal (test code = 58866-0) Marked Clear A UA Spec Grav (test code = 5810-7) 1.027 <=1.030 UA pH (test code = 5803-2) 5.0 5.0-8.0 UA Protein; Abnormal (test code = 11711-7) 30 mg/dl Negative A UA Ketones; Abnormal (test code = 04033-6) Trace Negative A UA Bili (test code = 5770-3) Negative Negative UA Blood (test code = 5794-3) Negative Negative UA Nitrite (test code = 5802-4) Negative Negative UA Leuk Est (test code = 5799-2) Negative Negative UA RBC (test code = 50048-1) 2 {/HPF} 0-2 UA WBC (test code = 41796-0) 1 {/HPF} 0-5 UA Bacteria; Abnormal (test code = 94784-9) Moderate None Seen A UA Mucus; Abnormal (test code = 8247-9) Many None Seen A UA Sq Epi; Abnormal (test code = 62838-9) Moderate Few A UA Color (test code = 5778-6) Lynne UA Glucose (test code = 60317-3) 50 mg/dl UROBILINOGEN (test code = 18962-3) <=1.0 0.1-1.0 [facility] Physicians[[facility]] CULTURE, URINE, [id number] 00:00:01 Test Item Value Reference Range Interpretation Comments ORGANISM (test code = Escherichia coli 699-9) FINAL REPORT (test 50,000 - 100,000 CFU/mL code = FINAL REPORT) Escherichia coli <10,000 CFU/mL Skin Sapna [facility] Physicians[H] [id number] 00:00:01 Test Item Value Reference Range Interpretation Comments ORGANISM (test code = Escherichia coli 699-9) Amikacin (test code = <=8 S Amikacin) Ampicillin (test code >16 R = Ampicillin) Ampicillin/Sulbactam 16/8 I (test code = Ampicillin/Sulbactam) Cefazolin (test code <=2 S = Cefazolin) Cefepime (test code = <=2 S Cefepime) Ceftriaxone (test <=1 S code = Ceftriaxone) Cefuroxime (test code <=4 S = Cefuroxime) Ciprofloxacin (test <=0.5 S code = Ciprofloxacin) Gentamicin (test code <=1 S = Gentamicin) Levofloxacin (test <=1 S code = Levofloxacin) Meropenem (test code <=1 S = Meropenem) Nitrofurantoin (test <=32 S code = Nitrofurantoin) Piperacillin/Tazobact <=8 S am (test code = Piperacillin/Tazobact am) Tetracycline (test >8 R code = Tetracycline) Tobramycin (test code <=2 S = Tobramycin) Trimethoprim/Sulfamet <=0.5/9.5 S S= Marley ceptible, hoxazole (test code = R= Res istant, I= Trimethoprim/Sulfamet Interm ediate, hoxazole) N/A= Not Applicable [facility] Physicians[H] Culture Ureaplasma/Mycoplasma hominis 2019-05-28 00:00:01 Test Item Value Reference Range Interpretation Comments Ureaplasma urealyticum Negative (test code = Ureaplasma urealyticum) Mycoplasma hominis (test Negative Per formed At: BN code = Mycoplasma [facility] hominis) [id number] [facility] [place] [id number] ra Jaydon FARIA Ph:[phone] [facility] PhysiciansMRI SPINE CERVICAL W/O [id number] 13:25:17 Addendum: Upon further review, the right paracentral to foraminal discprotrusion at C5-C6 causes more of a focal moderate right neuroforaminalnarrowing along the paracentral portion and likely contactsthe nerve root atthis level. GLUCOMETER GLUCOSE- LAB USE [id number] 12:45:00 Test Item Value Reference Range Interpretation Comments GLUCOMETER (test code 174 mg/dL 70-100 H CLEANE D METERMeter ID: = GMG) [id number] tor: 4289 OTIS STAPLETON SON GLUCOMETER GLUCOSE- LAB USE [id number] 13:57:00 Test Item Value Reference Range Interpretation Comments GLUCOMETER (test code = 122 mg/dL 70-100 H Mete r ID: GMG) [id number] tor: 5611 SIL S UASIN GLUCOMETER GLUCOSE- LAB USE [id number] 11:57:00 Test Item Value Reference Range Interpretation Comments GLUCOMETER (test code = 152 mg/dL 70-100 H Mete r ID: GMG) [id number] tor: 4289 OTIS STAPLETON SON Zzjwxriow6373-91-65 16:20:008.7[facility] AqtgadnOggpeqklw5736-90-38 16:20:67703 [facility] UandbbcPgtdaoyqb6897-65-13 16:20:13816Pzbtvtcp HermannChemistry 2015-01-13 16:20:0031[facility] VggeswaDkxlhwjqp7465-45-91 16:20:0046[facility] ZeyorccLecermckd9571-58-58 16:20:50803 MEQ/LMemorial LrjytdkYyectmbqt6591-40-55 16:20:004.4 MEQ/LMemorial NyupjusLofiguqch6086-78-39 16:20:000.8[facility] Vkubfljcc5838-73-93 16:20:0011[facility] DclqkqqOjhntqqsk9518-54-51 16:20:00 Test Item Value Reference Range Interpretation Comments BUN/CREAT (test code = BUN/CREAT) 14 1 6-25 [facility] BnfatkyPghejgzai9395-01-92 16:20:003.8[facility] HermannChemistry 2015-01-13 16:20:008.9[facility] RlhhhgwFxlqsncsl2697-23-27 16:20:0038[facility] BefscgjXhkhwjzjh0088-13-93 16:20:0022[facility] OcclwbsKucxvmzrp8879-26-92 16:20:0069[facility] TryhqufXcyzltfvjb1217-01-45 16:20:0013.9[facility] [place] Tnqcfjgtxm2561-27-02 16:20:0042.8[facility] HnhdmvrRwiarwzait7848-82-23 16:20:00 283 K/CMMMemorial ObasyzgNkzyrcmlxv3629-58-79 16:20:0034[facility] HermannSerology 2015-01-13 16:20:00NegativeMemorial KvkllijLjeqrgppty2535-19-05 10:07:00YELLOW [facility] KrcuabjVzhqohkjiy5108-52-03 10:07:000-5[facility] HermannUrinalysis 2014-12-17 10:07:00FEWMemorial JtkyundWbnborhwqp9777-87-85 10:07:00MODERATE /HPF [facility] MyqhhlyZhksrufflm0351-76-40 10:07:00YELLOWMemorial HermannUrinalysis 2014-12-17 10:07:000-5[facility]orial XgtteyjOxqdkpmrxi6146-85-27 10:07:00FEWMemorial EiglagqVfeqfnuarp0487-12-94 10:07:00MODERATE /HPFMemorial HermannChemistry 2014-10-13 14:40:0010.8[facility] CfapulyTpybinplm1114-20-45 14:40:61897Jlpgfrlg QzmdefsByxuvffzj8748-16-56 14:40:67175Siacldhi LimyierIdyqzwqsv3494-88-74 14:40:0037[facility] JlxvthwJoimlikdk1503-36-90 14:40:0010.8[facility] [place] Slhskzkmq0002-61-27 14:40:48399Ojsautaw FtfekqeCoerhsgyt5999-67-31 14:40:44989 Memorial BlnaliyNxvzdppsu7855-15-61 14:40:0037[facility] HermannChemistry 2014-10-13 14:40:0010.8[facility] XgtsidiDhqhklyws2635-96-08 14:40:31550Fswyrszi RgvvgoaOsqagbepe6784-11-01 14:40:43369Thbgbifo EqmlrtxQhwxfzsgh3924-68-42 14:40:0037[facility] FghxdcwQsgnujged7671-87-19 14:40:0061[facility] [place] Zjvuuujhl6206-87-98 14:40:255287Fpevxvzu KgjxoezDagnvnhfr2314-13-41 14:40:003.03 Memorial QbqlehrXjbuvzsbaf7358-90-54 14:40:0013.8[facility] HermannHematology 2014-10-13 14:40:0042.4Mem[facility] SwpoamnNirkhgwmyl7015-40-65 14:40:37179 K/CMM [facility] BvhwcquUnlvemuoz9380-09-61 14:38:46046 MEQ/LMemorial HermannChemistry 2014-10-13 14:38:004.0 MEQ/LMemorial DhptwutSoramrikf8951-34-85 14:38:000.8 Memorial SmwdwtmDxdwutaay8369-56-92 14:38:68816 MEQ/LMemorial HermannChemistry 2014-10-13 14:38:004.0 MEQ/LMemorial ReebxwwEqqpffxdq9780-44-80 14:38:000.8 Memorial CuldlmxKcinzzbcw8956-21-04 14:38:0010[facility] HermannChemistry 2014-10-13 14:38:49660 MEQ/LMemorial DueqojvMtxvuaskk5304-75-91 14:38:004.0 MEQ/LMemorial MxrgkjmZdlqhhyzs3048-41-15 14:38:000.8[facility] HermannChemistry 2014-10-13 14:38:35411 MEQ/LMemorial ZfkpwrfEwoytotch6446-63-22 14:38:004.0 MEQ/LMemorial HsqalzeBrovkfack6808-20-37 14:38:000.8[facility] HermannChemistry 2014-10-13 14:38:95226 MEQ/LMemorial WcsmpghFrtgrknmc9230-13-33 14:38:004.0 MEQ/LMemorial NgpdbxeTtpwotuae2693-19-60 14:38:000.8[facility] HermannChemistry 2014-10-13 14:38:0010[facility] UusguuxWlectntwx5755-32-75 14:38:85412 MEQ/L Memorial ZizxnnsHcchtycgn1036-97-50 14:38:004.0 MEQ/LMemorial HermannChemistry 2014-10-13 14:38:000.8[facility] LixnntzGinfxqnrk6378-13-99 14:38:0010Mem[facility] UyurajrYkhitquim1892-17-24 14:38:08693 MEQ/LMemorial AinhribYhdxdssdt8446-83-80 14:38:004.0 MEQ/LMemorial QyucsxdMkvfdpfhm0243-30-96 14:38:0010[facility] Idexubgcz9774-92-92 14:38:21350 MEQ/LMemorial WhanlziFosqlivhf9732-67-89 14:38:004.0 MEQ/LMemorial AbskahlRloyhllbj5125-81-59 14:38:000.8[facility] [place] Eudebraju9385-66-67 14:38:0010[facility] YjgotinDrebzffjg3122-52-59 14:38:00 Test Item Value Reference Range Interpretation Comments BUN/CREAT (test code = BUN/CREAT) 01-07 [facility] EcgdcbsMrmircnbx7482-22-63 14:38:003.7[facility] HermannChemistry 2014-10-13 14:38:000.8[facility] UjkklabXfyzrwynn4435-53-33 14:38:0010[facility] KvldxfcWetmxhizl2427-39-40 14:38:00 Test Item Value Reference Range Interpretation Comments BUN/CREAT (test code = BUN/CREAT) 01-07 [facility] AcdshjkBhtummtak8708-97-60 14:38:003.7[facility] 2014-10-13 14:38:009.2[facility] AjufgkeCrhxpmkky1286-76-39 14:38:0063[facility] LxhbkthQsiuqldin7237-21-10 14:38:0063[facility] OrcfyasTmtikunww3869-84-47 14:38:0079[facility] GqlgztzXkgainrff9631-06-19 14:38:009.2[facility] Qbsgikshf3453-48-37 14:38:0063[facility] RbfzdyiLegomioyo3632-11-64 14:38:0063 [facility] XegoeogVvflffjaz0612-62-22 14:38:0079[facility] 2014-07-15 15:23:0010.3[facility] RcywnrkJiyrrwpop9839-39-36 15:23:06329Xkmhxlhn QnlmfmnRvdpydmrb8893-73-96 15:23:77666Uggiskbj VdkagmuNxevxgzyt0950-75-90 15:23:0042[facility] RyqjxwgVhzxxegpv3828-42-88 15:23:0087[facility] Zxdtzofjo9483-14-21 15:23:23144 MEQ/LMemorial QjioelxWhgpcfkck4378-36-75 15:23:003.8 MEQ/LMem[facility] WedmojfAxkwsszuv8361-37-98 15:23:000.7[facility] Usbvaicfq9566-43-48 15:23:0010[facility] PjqcyssAfeepvhvr3820-84-42 15:23:00 Test Item Value Reference Range Interpretation Comments BUN/CREAT (test code = BUN/CREAT) 14 1 6-25 [facility] AmfvmufLzpreepnh3710-66-90 15:23:0010.3[facility] 2014-07-15 15:23:15727Dcueqeyu UxfupaqGhloqfvsl8894-22-70 15:23:17094Btxtidwp MrwkvniGqojyinjp8854-39-81 15:23:0010.3[facility] UbookdfLceeyxrym0273-27-83 15:23:26388Akqnebld BpgmvgaOuwgjhkvy5847-92-69 15:23:52115Ctivltip [facility] Hxjgpjamx1335-25-11 15:23:0042[facility] GvcnfrvXahdzycwt0227-71-18 15:23:0010.3 [facility] JsflwuaWsacprfxe7860-91-52 15:23:50468Cutlheom [facility]annChemistry 2014-07-15 15:23:39613Nfocpvug SggtacrEhqipqcnr2968-21-90 15:23:0042[facility] KbaynzvOivirtnao9841-92-96 15:23:0010.3[facility] GpomrylJhpsyzvkj0638-16-04 15:23:50067Nxpzbvsf GfftwvwJcwisifpu9636-29-10 15:23:98848Swlteopr [facility] Xedtjhkwe9737-27-55 15:23:0042[facility] ZitrjwdNkdfrsgtb2083-32-33 15:23:0087 [facility] RdlyfkuMwduyfozb0274-20-97 15:23:74157 MEQ/L[facility]annChem[facility] 2014-07-15 15:23:003.8 MEQ/LMem[facility] IvjrfpgJpnmgbgbs4409-41-49 15:23:000.7 [facility] TxlsjigCtkydvkns7132-67-70 15:23:0010[facility] 2014-07-15 15:23:00 Test Item Value Reference Range Interpretation Comments BUN/CREAT (test code = BUN/CREAT) 14 1 6-25 [facility] AboxdytYhktleiun2630-79-79 15:23:003.9[facility] 2014-07-15 15:23:008.8[facility] FbbrgtfZcnlxeqgl6908-98-26 15:23:0067[facility] GrcwzdsUthgcpddx4680-76-51 15:23:0042[facility] OygbgnsQajagqeyl9037-03-80 15:23:0086[facility] WyseeahOasslgjot1785-89-52 15:23:003.100[facility] Qpkdpnlger5088-52-47 15:23:0015.0[facility] EwieerlPrrrlhglvy3730-95-31 15:23:00 45.6[facility] UdaddykCuweixglxu0388-06-82 15:23:88560 K/CMMMem[facility] Wpopadtwn3584-84-21 16:00:007.0[facility] GzixdwsZzauxpkxj9558-85-64 16:00:62030 [facility] QbkioygVntvbuogk4082-55-69 16:00:41446Iwyhhqhu [facility] 2013-07-30 16:00:007.0[facility] MhvcxffLxaphxkrj9635-07-36 16:00:38221Zebqcbix BnfysskPhzzeghhx4207-26-26 16:00:15060Hawtpdmq EcvvwyoErxmnthac4574-38-35 16:00:0035[facility] ActbsquGvihnsxnl6101-85-58 16:00:007.0[facility] Kewyboggq5624-22-27 16:00:91689Qwdatldp XuqfupxKzmjptfnm4908-00-37 16:00:86528 [facility] CibrtslEgthvmgkh6274-15-53 16:00:0035[facility] 2013-07-30 16:00:007.0[facility] LwzcfdoFdkbojawm3178-64-34 16:00:41326Noliblvq FjailjvSgdbvvcay9792-09-19 16:00:18682Fofnffsk DsznkepHwmkxrplo3073-47-23 16:00:007.0[facility] RlmuhqbPjghjcyof7741-37-34 16:00:26896Kvaozyst [facility] Zblswzkpz9717-19-01 16:00:38881Yprsuiqb ShbeqwbEsdmjedbj3313-23-29 16:00:0035 [facility] AuzajzaOkopmkqoi7612-98-14 16:00:0068[facility] 2013-07-30 16:00:36644 MEQ/LMemorial CzbmpjcYodzfdvqz3187-54-41 16:00:004.2 MEQ/LMemorial VvuqzenLmfxvlkoc1338-25-77 16:00:000.7[facility] 2013-07-30 16:00:008[facility] CeombjrNajagotwf7118-18-15 16:00:00 Test Item Value Reference Range Interpretation Comments BUN/CREAT (test code = BUN/CREAT) 11 1 6-25 [facility] NaouzipXjjlupjeh5391-47-87 16:00:007.0[facility] 2013-07-30 16:00:21125Hamlmerb YrnwbbaUthyxcsex7775-22-87 16:00:78207Tuktpfmx OctlqtsLommxdovi9635-14-61 16:00:007.0[facility] LpbpmpvTnjpjsnbe7238-48-34 16:00:06746Bqhoriqn KwyblhqTtzwwyudj8328-23-65 16:00:87070Gqswxprp [facility] Antonio Smsgxlnat6536-59-98 16:00:0035[facility] BcvphzwXzzzylokx1876-41-10 16:00:007.0 [facility] UkuldupDvrjpuybq4940-01-34 16:00:13623Ptvukyoo [facility] 2013-07-30 16:00:71806Epqtcxpj CmclczfPztjpxdbc8741-83-35 16:00:0035[facility] HvtkcmhFlmsrijwe8170-14-42 16:00:007.0[facility] XhimgenTtlywvqgb6337-85-73 16:00:06120Ujcmtiji YjlevfyUjydvktsa4373-78-39 16:00:23007Edhzwutf [facility] Oudulholl9701-99-80 16:00:0035[facility] MzbcaocYzpqnhxmp0742-55-27 16:00:0035 [facility] MfacicvHetcklsxn7535-72-28 16:00:87496 MEQ/LMemorial [facility] 2013-07-30 16:00:004.2 MEQ/LMemorial XaggzefEgtyrvend6472-79-28 16:00:0068 [facility] DwmordxWioxirvpl7595-47-76 16:00:68797 MEQ/LMem[facility] 2013-07-30 16:00:004.2 MEQ/LMemorial VgxqwtrAdvwsnsnh1031-98-00 16:00:000.7 [facility] YahwpzbQickvztpm1738-88-01 16:00:008[facility] XjfxdevLnnllgkri9891-65-27 16:00:00 Test Item Value Reference Range Interpretation Comments BUN/CREAT (test code = BUN/CREAT) 11 1 01-07 [facility] LyrarvsEnsyyrdok7803-60-43 16:00:004.3[facility] 2013-07-30 16:00:000.7[facility] SnvyvquIwrpvtmem6523-34-36 16:00:008[facility] MookhdzMjoyupzye6068-45-16 16:00:00 Test Item Value Reference Range Interpretation Comments BUN/CREAT (test code = BUN/CREAT) 11 1 6-25 [facility] BceegmsVingpwmux7084-09-14 16:00:004.3[facility] 2013-07-30 16:00:009.5[facility] JkfazctZegyrarxb3410-24-50 16:00:0038[facility] YjubplxSmzlvgphc3970-81-02 16:00:0030[facility] XafkifxVrzhnxsny1923-59-37 16:00:0050[facility] CexurmxVqwarfuap9199-68-40 16:00:009.5[facility] Svymcpaax6963-50-50 16:00:0038[facility] FmkcjgqCtnlnhtxt0363-92-05 16:00:0030 [facility] CeptrnaOrsbicuzf6147-94-65 16:00:0050[facility] 2013-05-03 09:40:00712Xfbcdfrx OlggvycAnacqzhak2371-72-17 09:40:0026[facility] QpyppsmBudbbfyvw7164-48-88 09:40:41021Emxietsd LfqxobmGvjahfcpc9344-80-89 09:40:0071 MG/DL (CALC)[facility] InbrbksEchcovgcs6559-81-59 09:40:008[facility] JwxbomiEsilahhxk3571-62-69 09:40:000.60[facility] UzrajdeLhmehazva9195-10-08 09:40:00NOT APPLICABLE (calc)[facility] XwxxfimQmhlbejor6707-09-85 09:40:02140 [facility] SgnlfhhZpznycoxr2261-28-22 09:40:004.4[facility] 2013-05-03 09:40:008.9[facility] VpcbnoiRqkbuzgwe9325-17-61 09:40:79054Vdldhskw XcfcdwiNvmsrbqjd8019-56-65 09:40:0026[facility] VdtkyebJwfdgrrqp2579-69-77 09:40:03165Podedxwz EvqaaiySfiikzpjg0990-08-76 09:40:69734Ypzubjkc Luis Antonio Owiizajvp4089-27-08 09:40:0026[facility] HbgateaVioxoljel4798-17-57 09:40:47851 [facility] IonfduaOuwsbnkgn3959-56-06 09:40:0071 MG/DL (CALC)[facility] Lkhyhxlnd0134-60-37 09:40:62845Zxxcurot FjfzcufXvanvlbzx2378-04-94 09:40:0026 [facility] YqqucmeCvuvlqjks3025-59-68 09:40:37558Efvosbbx [facility] 2013-05-03 09:40:0071 MG/DL (CALC)[facility] DpgjvnlLhzhephjp7177-03-39 09:40:00 136[facility] KlpowvtZgpgvuvem5162-23-96 09:40:0026[facility] 2013-05-03 09:40:27022Sfusqesx TbhexoyNydbimqyw0521-56-08 09:40:0071 MG/DL (CALC)[facility] UztvwvpWzhxwmgkl0167-67-34 09:40:008[facility] 2013-05-03 09:40:000.60[facility] SfqlaluYerlktwba7189-54-32 09:40:00NOT APPLICABLE (calc)[facility] ZhgzxxlKpefwxrkb8816-72-53 09:40:37643Igbosqcs [facility] Antonio Fzfwasjkq3100-97-98 09:40:004.4[facility] GusfqtjAbpfvqvhf9335-76-00 09:40:008.9 [facility] EvnzulnHjqhxkifw2280-18-29 09:40:003.9[facility] 2013-05-03 09:40:0069[facility] AotiaqmIwbznrdwj4439-52-67 09:40:0027[facility] UlgkwbeYsyvilkyd7203-56-23 09:40:0028[facility] BmcvsocOyqgqkojn9629-24-29 09:40:008.8 % OF TOTAL HGBMemorial SmihddeQnworcdkib2698-81-91 09:40:0012.7 [facility] MuscjjeQaohuiafpi8489-10-21 09:40:0038.6[facility] 2013-05-03 09:40:07999 THOUSAND/ULMemorial HermannOb/Nkn3346-57-52 14:30:11 NormalMemorial HermannOb/Mqq2709-30-21 14:30:11NormalMemorial Luis Antonio
[2019-12-22] MEDS ORDERED: TETRACAINE HCL 0.5% 4ML OPTH ONE (22:16)
[2019-12-22] MEDS ORDERED: FLUORESCEIN SODIUM 1 MG/WRAP ONE (22:16)
[2019-12-22] MEDS ORDERED: NA CHLORIDE 0.9% 1,000 ML ONE (23:20)
[2019-12-22 23:22] LABS: Basophils % 1.1 % (0-1.3); Hematocrit 39.1 % (36.0-45.0); MPV 8.3 fL (7.6-11.3); RBC Red Blood Cell Count 4.47 M/uL (3.86-4.86)
[2019-12-22 23:42] LABS: BUN Blood Urea Nitrogen 10 mg/dL (7-18); Bicarbonate 23 mmol/L (21-32); Glucose Level 162 mg/dL (74-106); Potassium 3.5 mmol/L (3.5-5.1); Sodium Level 136 mmol/L (136-145)
--- NOTE | 2019-12-23 00:58 | EDPHYS ---
Physician Documentation [facility] Name: Romana Canales Age: 49 yrs Sex: Female : 1970 Arrival Date: 12/22/2019 Time: 20:39 Bed 15 Private MD: ED Physician Shawn Frias HPI: 12/21 22:15 This 49 yrs old Female presents to ER via Ambulatory with complaints of Eye cp Swelling. 22:15 The patient is experiencing swelling below eye, to the right eye. cp 22:15 Onset: The symptoms/episode began/occurred last week. Duration: the symptoms are cp continuous. Associated signs and symptoms: Pertinent negatives: fever. Patient does not utilize any form of vision correction. Patient reports noticing rash to right side of nose last week on . Patient reports increasing swelling to area below right eye and redness. Was seen at urgent care this past Sunday and started on oral clindamycin. 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 - Social history:: Smoking status: Patient denies any tobacco usage or history of. ROS: 22:20 Skin: Positive for erythema, swelling, of the below right eye and right side of nose. cp 22:20 ENT: Negative for injury, pain, and discharge. cp 22:20 Constitutional: Negative for body aches, chills, fever, poor PO intake. 22:20 Eyes: Negative for discharge, redness, vision loss. 22:20 Cardiovascular: Negative for chest pain, edema, palpitations. 22:20 Respiratory: Negative for cough, shortness of breath, wheezing. 22:20 Abdomen/GI: Negative for abdominal pain, nausea and vomiting. 22:20 Neuro: Positive for headache, Negative for altered mental status, weakness. 22:20 All other systems are negative. cp Exam: 22:25 Constitutional: The patient appears in no acute distress, alert, awake, cp non-diaphoretic, non-toxic, well developed, well nourished. 22:25 Head/face: Noted is erythema, that is mild, swelling, that is moderate, of the right cp cheek and right side of nose, tenderness, that is mild. 22:25 Eyes: Pupils: equal, round, and reactive to light and accomodation, Extraocular movements: intact throughout, Conjunctiva: normal, no exudate, no injection, Corneas: abrasion, is not appreciated, foreign body, is not appreciated, a fluorescein strip employed to appreciate the findings, no obvious dendrites noted, Sclera: no appreciated abnormality, Examination of the other eye reveals no obvious gross abnormality. 22:25 ENT: External ear(s): are unremarkable, Nose: External nose: swelling is noted, right side of nose, Mouth: Lips: moist, Oral mucosa: pink and intact, moist, Posterior pharynx: is normal, airway is patent, no erythema, no exudate, Voice: is normal. 22:25 Chest/axilla: Inspection: normal, Palpation: is normal, no crepitus, no tenderness. 22:25 Cardiovascular: Rate: normal, Rhythm: regular. 22:25 Respiratory: the patient does not display signs of respiratory distress, Respirations: normal, no use of accessory muscles, no retractions, labored breathing, is not present, Breath sounds: are clear throughout, no decreased breath sounds, no stridor, no wheezing. 22:25 Neuro: Orientation: to person, place \T\ time. Mentation: is normal. 23:10 Visual Acuity: I have reviewed the nursing documentation. cp Vital Signs: 20:51 BP 132 / 78; Pulse 81; Resp 15 S; Temp 97.7(TE); Pulse Ox 99% on R/A; Weight 113.4 kg ca1 (R); Height 5 ft. 2 in. (157.48 cm) (R); Pain 4/10; 12/22 00:16 BP 143 / 89; Pulse 84; Resp 18; Pulse Ox 98% on R/A; ea 01:21 BP 119 / 70; Pulse 70; Resp 18; Pulse Ox 98% on R/A; ea 02:35 BP 120 / 72; Pulse 68; Resp 18; Temp 98; Pulse Ox 99% on R/A; ea 12/21 20:51 Body Mass Index 45.73 (113.40 kg, 157.48 cm) ca1 Visual Acuity: 12/21 23:09 Left Eye Visual acuity 20/20, ; Right Eye Visual acuity 20/30, ; Both Eyes Visual ea acuity 20/20; Without Lenses; MDM: 22:00 Patient medically screened. cp 23:00 Differential diagnosis: Foreign body in right eye. Infectious conjunctivitis in right cp eye. cellulitis, herpes zoster. 12/22 00:45 Data reviewed: vital signs, nurses notes, lab test result(s), radiologic studies, CT cp scan, I have discussed the patient's presentation/case with the attending Emergency Department Physician; and as a result, I will admit patient. 12/21 22:02 Order name: CBC with Diff; Complete Time: 23:27 cp 12/21 23:27 Interpretation: Reviewed. 12/21 22:02 Order name: BMP; Complete Time: 23:45 cp 12/21 23:45 Interpretation: Normal except: GLUC 162; CA 8.3. cp 12/21 23:10 Order name: CT Facial Bones W/ Con \T\ Mpr 12/22 01:33 Order name: Urine Dipstick--Ancillary (enter results); Complete Time: 01:45 la 12/22 01:46 Interpretation: Reviewed. 12/21 22:02 Order name: Visual Acuity; Complete Time: 23:16 cp 12/21 22:02 Order name: Eye Tray; Complete Time: 22:25 cp 12/21 22:02 Order name: Fluoresene Opth strip; Complete Time: 22:25 cp 12/21 22:02 Order name: IV; Complete Time: 23:16 cp 12/21 23:09 Order name: Urine Dipstick-Ancillary (obtain specimen); Complete Time: 01:33 cp Administered Medications: 12/21 22:51 Drug: Tetracaine Drops 0.5 % 1 drops Route: Ophthalmic; Site: right eye; ea 23:17 Drug: NS 0.9% 1000 ml Route: IV; Rate: 1 bolus; Site: left forearm; ea 12/22 01:23 Follow up: Response: No adverse reaction; IV Status: Completed infusion; IV Intake: ea 1000ml 01:21 Drug: vancoMYCIN 1 grams Route: IVPB; Infused Over: 2 hrs; Site: left forearm; mg2 02:36 Follow up: IV Status: Infusion continued upon admission ea 01:33 Drug: Acyclovir 800 mg Route: PO; ea 02:36 Follow up: Response: No adverse reaction ea Disposition: 01:00 Chart complete. cp 05:46 Co-signature as Attending Physician, Shawn Frias MD. [email or web address] Disposition: 12/23/19 00:57 Hospitalization ordered by Edilson Hobson for Inpatient Admission. Preliminary diagnosis is Cellulitis of face - right periorbital and right premaxillary. - Bed requested for Telemetry/MedSurg (Inpatient). - Status is Inpatient Admission. ea - Condition is Stable. - Problem is new. - Symptoms have improved. Signatures: Dispatcher [employer] EDMS Nallely Felix RN Atif Hearn, PA PA Riddhi Becerril RN RN ea Gardose, Michele RN Lacy Castillo RN RN [facility] Shawn Frias MD MD [email or web address] Corrections: (The following items were deleted from the chart) 12/21 23:45 23:45 Normal except: GLUC 162. cp cp 12/22 01:51 00:57 Hospitalization Ordered by Edilson Hobson for Inpatient Admission. Preliminary diagnosis is Cellulitis of face - right periorbital and right premaxillary. Bed requested for Telemetry/MedSurg (Inpatient). Status is Inpatient Admission. Condition is Stable. Problem is new. Symptoms have improved. cp 01:53 12/21 23:09 Urine Test ordered. cp ea 12/22 02:42 01:51 12/23/2019 00:57 Hospitalization Ordered by Edilson Hobson for Inpatient ea Admission. Preliminary diagnosis is Cellulitis of face - right periorbital and right premaxillary. Bed requested for Telemetry/MedSurg (Inpatient). Status is Inpatient Admission. Condition is Stable. Problem is new. Symptoms have improved. mw
--- NOTE | 2019-12-23 00:58 | ER ---
Nurse's Notes [facility] Name: Romana Canales Age: 49 yrs Sex: Female : 1970 Arrival Date: 12/22/2019 Time: 20:39 Bed 15 Private MD: Diagnosis: Cellulitis of face-right periorbital and right premaxillary Presentation: 12/21 20:51 Chief complaint: Patient states: Started with a few bumps on the on the R side ca1 of nose. Swelling on R side of face and under R eye since Sunday. Went to Urgent Care Sunday, they diagnosed me with cellulitis and was prescribed with Clindamycin. Still did not feel better and think swelling has gotten worse. Reports headache on the R side and across R side of face. Coronavirus screen: Proceed with normal triage. Patient denies a cough. Patient denies shortness of breath or difficulty breathing. Patient denies measured and/or subjective temperature greater than 100.4F prior to today's visit. Patient denies travel on a cruise ship or to a country the [facility] currently lists as an affected area. Patient denies contact with known and/or suspected case of COVID-19. Ebola Screen: Patient negative for fever greater than or equal to 101.5 degrees Fahrenheit, and additional compatible Ebola Virus Disease symptoms Patient denies exposure to infectious person. Patient denies travel to an Ebola-affected area in the 21 days before illness onset. No symptoms or risks identified at this time. Initial Sepsis Screen: Does the patient meet any 2 criteria? No. Patient's initial sepsis screen is negative. Does the patient have a suspected source of infection? No. Patient's initial sepsis screen is negative. Risk Assessment: Do you want to hurt yourself or someone else? Patient reports no desire to harm self or others. Onset of symptoms was December 22, 2019. 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 - Social history:: Smoking status: Patient denies any tobacco usage or history of. Screenin:29 Abuse screen: Denies threats or abuse. Nutritional screening: No deficits noted. ea Tuberculosis screening: No symptoms or risk factors identified. Fall Risk None identified. Assessment: 22:25 General: Appears uncomfortable, Behavior is appropriate for age. Pain: Complains of ea pain in right eye. Neuro: Level of Consciousness is awake, alert, obeys commands, Oriented to person, place, time, situation. Cardiovascular: Patient's skin is warm and dry. Respiratory: Airway is patent Respiratory effort is even, unlabored, Respiratory pattern is regular, symmetrical. EENT: Eyes redness and swelling noted around right eye. Reports Pt reports drainage to right eye. Derm:. 22:32 Reassessment: Jose A () [phone]. ea 23:22 Reassessment: Patient and/or family updated on plan of care and expected duration. Pain ea level reassessed. Patient is alert, oriented x 3, equal unlabored respirations, skin warm/dry/pink. 12/22 00:00 Reassessment: Patient and/or family updated on plan of care and expected duration. Pain ea level reassessed. Patient is alert, oriented x 3, equal unlabored respirations, skin warm/dry/pink. 01:50 Reassessment: Patient and/or family updated on plan of care and expected duration. Pain ea level reassessed. Patient is alert, oriented x 3, equal unlabored respirations, skin warm/dry/pink. 02:17 Reassessment: Report called to receiving nurse on fourth floor. ea Vital Signs: 12/21 20:51 BP 132 / 78; Pulse 81; Resp 15 S; Temp 97.7(TE); Pulse Ox 99% on R/A; Weight 113.4 kg ca1 (R); Height 5 ft. 2 in. (157.48 cm) (R); Pain /10; 12/22 00:16 BP 143 / 89; Pulse 84; Resp 18; Pulse Ox 98% on R/A; ea 01:21 BP 119 / 70; Pulse 70; Resp 18; Pulse Ox 98% on R/A; ea 02:35 BP 120 / 72; Pulse 68; Resp 18; Temp 98; Pulse Ox 99% on R/A; ea 12/21 20:51 Body Mass Index 45.73 (113.40 kg, 157.48 cm) ca1 Visual Acuity: 12/21 23:09 Left Eye Visual acuity 20/20, ; Right Eye Visual acuity 20/30, ; Both Eyes Visual ea acuity 20/20; Without Lenses; ED Course: 20:39 Patient arrived in ED. ds1 20:55 Triage completed. ca1 20:57 Arm band placed on right wrist. ca1 21:47 Atif Roberts PA is PHCP. cp 21:48 Shawn Frias MD is Attending Physician. cp 22:25 Riddhi Yan RN is Primary Nurse. ea 22:25 Missed attempt(s): 20 gauge in right antecubital area. Bleeding controlled, band aid ea applied, catheter tip intact. 22:29 Patient has correct armband on for positive identification. Bed in low position. Call ea light in reach. Side rails up X 1. 12/22 00:28 CT Facial Bones W/ Con \T\ Mpr In Process Unspecified. EDWY 00:56 Edilson Hobson is Hospitalizing Provider. cp 02:01 No provider procedures requiring assistance completed. Patient admitted, IV remains in ea place. Administered Medications: 12/21 22:51 Drug: Tetracaine Drops 0.5 % 1 drops Route: Ophthalmic; Site: right eye; ea 23:17 Drug: NS 0.9% 1000 ml Route: IV; Rate: 1 bolus; Site: left forearm; ea 12/22 01:23 Follow up: Response: No adverse reaction; IV Status: Completed infusion; IV Intake: ea 1000ml 01:21 Drug: vancoMYCIN 1 grams Route: IVPB; Infused Over: 2 hrs; Site: left forearm; mg2 02:36 Follow up: IV Status: Infusion continued upon admission ea 01:33 Drug: Acyclovir 800 mg Route: PO; ea 02:36 Follow up: Response: No adverse reaction ea Intake: 01:23 IV: 1000ml; Total: 1000ml. ea Outcome: 00:57 Decision to Hospitalize by Provider. cp 02:16 Admitted to Med/surg accompanied by tech, via wheelchair, room 229, with chart, Report ea called to Receiving nurse on second floor 02:16 Condition: stable 02:42 Patient left the ED. ea Signatures: Dispatcher [facility] Julieta Burkett ds1 Atif Roberts PA PA cp Antunez, Elena, RN RN ea Juan Bradford, RN RN mg2 Lacy Cardenas, RN RN ca1
[2019-12-23] MEDS ORDERED: ACYCLOVIR 400 MG TABLET ONE (01:14)
[2019-12-23] MEDS ORDERED: NA CHLORIDE 0.9% 250 ML ONE (01:14)
[2019-12-23] MEDS ORDERED: VANCOMYCIN 1 GM/VIAL ONE (01:14)
[2019-12-23] MEDS ORDERED: CLINDAMYCIN 900MG/D5W 900 MG/50 ML IVPB IV ONE (01:31)
[2019-12-23 01:44] LABS: Urine Blood NEGATIVE (NEG); Urine Glucose NEGATIVE (NEG); Urine Protein NEGATIVE (NEG)
--- NOTE | 2019-12-23 02:00 | P.HP ---
Certification for Inpatient Patient admitted to: Inpatient With expected LOS: >2 Midnights Practitioner: I am a practitioner with admitting privileges, knowledge of patient current condition, hospital course, and medical plan of care. Services: Services provided to patient in accordance with Admission requirements found in Title 42 Section 412.3 of the Code of Federal Regulations Patient History Date of Service: 12/23/19 Reason for admission: Painful Swelling periorbital area History of Present Illness: 49-year-old woman morbidly obese woman a history of diabetes presented emergency department with a complaint of erythematous rash and swelling of the right midaxillary and periorbital area which has been present for about 5 days. The swelling did not respond to antibiotics prescribed at an urgent care. According to the patient, it got worse and more painful. She denied any fever. She said that this started as a small pruritic nodule. CT scan shows preseptal swell ing/periorbital cellulitis. Patient is admitted for further management given that she has failed outpatient. Allergies Penicillins Allergy (Mild, Verified 12/23/19 02:57) Hives/Rash Home Medications: Benazepril HCl 40 mg PO BEDTIME 12/23/19 Dulaglutide [Trulicity] 0.5 ml SQ Q7D 12/23/19 Duloxetine HCl [Cymbalta] 3 tab PO BEDTIME 12/23/19 Gabapentin Enacarbil [Horizant] 1 tab PO BEDTIME 12/23/19 Hydrocodone/Acetaminophen [Hydrocodone-Acetamin 5-325 mg] 1 tab PO TID PRN 12/23/19 Insulin Detemir [Levemir Flextouch] 25 units SQ BEDTIME 12/23/19 Mirabegron [Myrbetriq] 50 mg PO DAILY 12/23/19 Nebivolol HCl [Bystolic] 10 mg PO BEDTIME 12/23/19 Pravastatin Sodium 1 tab PO BEDTIME 12/23/19 Sitagliptin Phos/Metformin HCl [Janumet 50-1,000 mg Tablet] 1 tab PO BID 12/23/19 Topiramate [Trokendi Xr] 1 cap PO BEDTIME 12/23/19 Topiramate [Trokendi Xr] 1 tab PO DAILY 12/23/19 - Past Medical/Surgical History -: Diabetes mellitus type 2 - Family History Family History: Reviewed- Non-Contributory - Family History parents Notes: no medical hx - Social History Smoking Status: Never smoker Alcohol use: No CD- Drugs: No Place of Residence: Home Review of Systems Other: Except as documented, all other systems reviewed and negative. Physical Examination - Physical Exam General: Alert, In no apparent distress, Oriented x3 HEENT: Mucous membr. moist/pink, Sclerae nonicteric Neck: Supple, JVD not distended Respiratory: Clear to auscultation bilaterally, Normal air movement Cardiovascular: No edema, Regular rate/rhythm, Normal S1 S2 Gastrointestinal: Normal bowel sounds, Soft and benign, Non-distended, No tenderness Musculoskeletal: No swelling, No erythema Integumentary: Tenderness/swelling (right periorbital and maxillary area.), Erythema Neurological: Normal strength at 5/5 x4 extr, Cranial nerves 3-12 intact - Studies Laboratory Data (last 24 hrs) 12/22/19 23:08: Sodium 136, Potassium 3.5, BUN 10, Creatinine 0.63, Glucose 162 H 12/22/19 23:08: WBC 5.4, Hgb 12.9, Hct 39.1, Plt Count 239 Assessment and Plan - Problems (Diagnosis) (1) Periorbital cellulitis Current Visit: Yes Status: Acute (2) Diabetes mellitus type 2 in obese Current Visit: Yes Status: Acute - Plan Admit the patient to the medical floor. IV vancomycin and Levaquin Allergy to penicillin noted. Will add IV steroid due to possibility of contact dermatitis. Pain management as needed Aggressive blood sugar control with Lantus insulin and insulin sliding scale. Hold metformin. - Advance Directives Does patient have a Living Will: No Does patient have a Durable POA for Healthcare: No
[2019-12-23] MEDS ORDERED: ACETAMINOPHEN 500 MG TAB PO PRN (02:24)
[2019-12-23] MEDS ORDERED: ONDANSETRON 4 MG/2 ML VIAL IV PRN (02:24)
[2019-12-23] MEDS ORDERED: VANCOMYCIN 1.25 GM in NA CHLORIDE 0.9% 250 ML IVPB SCH (03:00)
[2019-12-23 03:21] VITALS: BMI 47.5
[2019-12-23] MEDS: TRAMADOL HCL 50 MG TAB PO PRN (03:42)
[2019-12-23] MEDS: Levofloxacin 750mg IV 750 MG/150 ML BAG IV SCH (04:02)
[2019-12-23 05:32] LABS: Phosphorus 3.2 mg/dL (2.5-4.9)
[2019-12-23 06:06] LABS: BUN Blood Urea Nitrogen 8 mg/dL (7-18); Bicarbonate 20 mmol/L (21-32); Glucose Level 140 mg/dL (74-106); Potassium 3.3 mmol/L (3.5-5.1); Sodium Level 140 mmol/L (136-145)
[2019-12-23] MEDS: MORPHINE 2 MG/ML SYR IV PRN (06:08)
[2019-12-23] MEDS: INSULIN -REGULAR HUMAN 50 UNIT/0.5 ML ML SQ SCH ×4 (07:30→20:19)
[2019-12-23] MEDS: ENOXAPARIN 40 MG/0.4 ML SQ SCH (08:40)
[2019-12-23] MEDS: METHYLPREDNISOLONE 40 MG INJ IV SCH ×2 (08:40→17:52)
[2019-12-23] MEDS: HOME MED 1 EA UNK (Mirabegron [Myrbetriq] 50 MG) PO SCH (09:00)
[2019-12-23] MEDS: TOPIRAMATE PO SCH ×2 (09:00→20:28)
[2019-12-23] MEDS ORDERED: POTASSIUM CL SA 10 MEQ TAB PO ONE (09:00)
--- NOTE | 2019-12-23 15:44 | RAD REPORT ---
EXAM DESCRIPTION: CTFacial Bones W Con Mpr12/23/2019 3:26 am CLINICAL HISTORY: Facial swelling COMPARISON: 06/19/2015. TECHNIQUE: Axial CT imaging of the facial bones and soft tissues utilizing intravenous contrast. Reformatted c oronal and sagittal images obtained. Examination was performed according to our departmental dose-optimization program, which includes aut omated exposure control, adjustment of the mA and/or kV according to patient size and/or use of itera tive reconstruction technique. FINDINGS: There is generalized right periorbital, intraorbital, and premaxillary soft tissue edema. There is as sociated skin thickening. No subcutaneous emphysema. No foreign body. Underlying bones are intact wit h no lytic bone lesion. No fracture seen. Intraorbital contents appear normal. There is no fracture within the nasal bones or nasal septum. Zygoma is intact bilaterally. Intact pte rygoid plates. Images soft tissues and mucosal spaces appear normal. There is a normal appearance of the submandibul ar and parotid glands. There are scattered nonenlarged lymph nodes throughout the neck. There are enl arged right submandibular lymph nodes. The largest is 2.3 x 1.4 x 1.7 cm. These demonstrate a preserv ed fatty ori indicative of reactive limits. Minimal adjacent. No focal edema. Normal epiglottis and included larynx. Normal maxilla and mandible. Temporomandibular joint are intact. No evidence of periodontal abscess. The carotid and jugular vessels appear normal. There is residual arteries appear well opacified. Included portions of the cerebral hemispheres and posterior fossa appear normal. IMPRESSION: 1. Nonspecific right periorbital and premaxillary edema compatible with cellulitis. No evidence of abscess or foreign body. No underlying bony abnormality. 2. Mild right submandibular lymphadenitis. Electronically signed by: Lata Serrano DO 12/23/2019 12:38 AM CDT Due to temporary technical issues with the PACS/Fluency reporting system, reports are being signed by the in house radiologist without review as a courtesy to ensure prompt reporting. The interpreting r adiologist is fully responsible for the content of the report.
[2019-12-23] MEDS: VANCOMYCIN 2 GM in NA CHLORIDE 0.9% 500 ML IVPB SCH (17:52)
[2019-12-23] MEDS: INSULIN GLARGINE 100 UNITS/ML SQ SCH (20:20)
[2019-12-23] MEDS: BENAZEPRIL 20 MG TAB PO SCH (20:21)
[2019-12-23] MEDS: NEBIVOLOL HCL 5 MG TAB PO SCH (20:22)
[2019-12-23] MEDS: ATORVASTATIN 10 MG TAB PO SCH (20:27)
[2019-12-23] MEDS: DULOXETINE 30 MG CAP PO SCH (20:27)
[2019-12-23] MEDS: GABAPENTIN ENACARBIL PO SCH (20:29)
[2019-12-23] MEDS ORDERED: HOME MED 1 EA UNK (Pravastatin Sodium [Pravastatin Sodium] 1 TAB) PO SCH (21:00)
[2019-12-23] MEDS ORDERED: HOME MED 1 EA UNK (Insulin Detemir [Levemir Flextouch] 25 UNITS) SQ SCH (21:00)
[2019-12-24] MEDS: METHYLPREDNISOLONE 40 MG INJ IV SCH ×3 (00:28→16:44)
[2019-12-24] MEDS: Levofloxacin 750mg IV 750 MG/150 ML BAG IV SCH (03:08)
[2019-12-24] MEDS: TRAMADOL HCL 50 MG TAB PO PRN (03:11)
[2019-12-24] MEDS: VANCOMYCIN 2 GM in NA CHLORIDE 0.9% 500 ML IVPB SCH ×2 (04:12→16:43)
[2019-12-24 05:57] LABS: Basophils % 0.3 % (0-1.3); Hematocrit 37.4 % (36.0-45.0); Lymphocytes % 14.1 % (15.3-44.8); MPV 8.7 fL (7.6-11.3); RBC Red Blood Cell Count 4.27 M/uL (3.86-4.86)
[2019-12-24 06:10] LABS: BUN Blood Urea Nitrogen 13 mg/dL (7-18); Bicarbonate 21 mmol/L (21-32); Glucose Level 261 mg/dL (74-106); Sodium Level 136 mmol/L (136-145)
[2019-12-24] MEDS: MORPHINE 2 MG/ML SYR IV PRN ×3 (06:34→19:18)
--- NOTE | 2019-12-24 08:36 | P.PN ---
Subjective Date of Service: 12/24/19 Chief Complaint: Painful Swelling periorbital area Right facial erythema and swelling have improved. Physical Examination - Vital Signs Temperature: 97.0 F Blood Pressure: 105/55 Pulse: 88 Respirations: 16 Pulse Ox (%): 95 - Physical Exam General: Alert, In no apparent distress Neck: Supple, JVD not distended Cardiovascular: No edema, Regular rate/rhythm, Normal S1 S2 Gastrointestinal: Normal bowel sounds, Soft and benign, No tenderness Musculoskeletal: No swelling Integumentary: Other (Right facial erythema and swelling significantly improved compared to yesterday) Assessment And Plan - Current Problems (Diagnosis) (1) Periorbital cellulitis Current Visit: Yes Status: Acute (2) Diabetes mellitus type 2 in obese Current Visit: Yes Status: Acute - Plan Continue IV vancomycin and Levaquin Continue IV steroid due to possibility of contact dermatitis. Pain management as needed Aggressive blood sugar control with Lantus insulin and insulin sliding scale. Hold metformin.
[2019-12-24] MEDS: HOME MED 1 EA UNK (Mirabegron [Myrbetriq] 50 MG) PO SCH (09:00)
[2019-12-24] MEDS: TOPIRAMATE PO SCH ×2 (09:00→21:00)
[2019-12-24] MEDS: INSULIN -REGULAR HUMAN 50 UNIT/0.5 ML ML SQ SCH ×4 (09:06→20:33)
[2019-12-24] MEDS: ENOXAPARIN 40 MG/0.4 ML SQ SCH (09:08)
[2019-12-24] MEDS: NEBIVOLOL HCL 5 MG TAB PO SCH (20:34)
[2019-12-24] MEDS: INSULIN GLARGINE 100 UNITS/ML SQ SCH (20:34)
[2019-12-24] MEDS: DULOXETINE 30 MG CAP PO SCH (20:35)
[2019-12-24] MEDS: ATORVASTATIN 10 MG TAB PO SCH (20:35)
[2019-12-24] MEDS: BENAZEPRIL 20 MG TAB PO SCH (20:35)
[2019-12-24] MEDS: GABAPENTIN ENACARBIL PO SCH (21:00)
[2019-12-24 22:42] VITALS: O2SAT 98
[2019-12-25] MEDS: METHYLPREDNISOLONE 40 MG INJ IV SCH ×2 (00:13→07:31)
[2019-12-25] MEDS: Levofloxacin 750mg IV 750 MG/150 ML BAG IV SCH (03:08)
[2019-12-25] MEDS: VANCOMYCIN 2 GM in NA CHLORIDE 0.9% 500 ML IVPB SCH (04:19)
[2019-12-25] MEDS: HOME MED 1 EA UNK (Mirabegron [Myrbetriq] 50 MG) PO SCH (07:18)
[2019-12-25] MEDS: TOPIRAMATE PO SCH (07:18)
[2019-12-25] MEDS: ENOXAPARIN 40 MG/0.4 ML SQ SCH (07:30)
[2019-12-25] MEDS: INSULIN -REGULAR HUMAN 50 UNIT/0.5 ML ML SQ SCH (07:34)
[2019-12-25 08:58] VITALS: BP 131/60; TEMP 97.5
--- NOTE | 2019-12-25 09:33 | P.DS ---
Admission Date: 12/23/19 Discharge Date: 12/25/19 Disposition: ROUTINE DISCHARGE Discharge Condition: FAIR Reason for Admission: Painful Swelling periorbital area - Problems (1) Periorbital cellulitis Current Visit: Yes Status: Acute (2) Diabetes mellitus type 2 in obese Current Visit: Yes Status: Acute Brief History of Present Illness: 49-year-old woman morbidly obese woman a history of diabetes presented emergency department with a complaint of erythematous rash and swelling of the right midaxillary and periorbital area which has been present for about 5 days. The swelling did not respond to antibiotics prescribed at an urgent care. According to the patient, it got worse and more painful. She denied any fever. She said that this started as a small pruritic nodule. CT scan shows preseptal swelling/periorbital cellulitis. Patient was admitted for further management g iven that she has failed outpatient. Hospital Course: Patient admitted to the medical floor and treated with IV vancomycin and IV Levaquin. Allergies to penicillin noted. Lesion also suspected to be related to contact dermatitis. Patient was also treated with IV steroid. The right facial and periorbital redness and swelling improved significantly with treatment. Patient is deemed clinically stable for discharge. She is discharged with oral Levaquin to complete treatment for cellulitis. All her other home medications have been resumed on discharge. Vital Signs/Physical Exam: Temp Pulse Resp BP Pulse Ox 97.5 F 60 18 131/60 99 12/25/19 08:00 12/25/19 08:00 12/25/19 08:00 12/25/19 08:00 12/25/19 08:00 General: Alert, In no apparent distress HEENT: Mucous membr. moist/pink Respiratory: Clear to auscultation bilaterally, Normal air movement Cardiovascular: No edema, Regular rate/rhythm, Normal S1 S2 Gastrointestinal: Normal bowel sounds, Soft and benign, No tenderness Integumentary: Other (Right facial was erythema and swelling significantly improved.) Neurological: Normal strength at 5/5 x4 extr Laboratory Data at Discharge: WBC 7.1 K/uL (4.3-10.9) D 12/24/19 05:16 Hgb 12.3 g/dL (12.0-15.0) 12/24/19 05:16 Hct 37.4 % (36.0-45.0) 12/24/19 05:16 Plt Count 257 K/uL (152-406) 12/24/19 05:16 Sodium 136 mmol/L (136-145) 12/24/19 05:16 Potassium 4.0 mmol/L (3.5-5.1) 12/24/19 05:16 BUN 13 mg/dL (7-18) 12/24/19 05:16 Creatinine 0.68 mg/dL (0.55-1.3) 12/24/19 05:16 Glucose 261 mg/dL (74-106) H 12/24/19 05:16 Phosphorus 3.2 mg/dL (2.5-4.9) 12/23/19 05:10 Magnesium 2.0 mg/dL (1.8-2.4) 12/23/19 05:10 Home Medications: Benazepril HCl 40 mg PO BEDTIME 12/23/19 Dulaglutide [Trulicity] 0.5 ml SQ Q7D 12/23/19 Duloxetine HCl [Cymbalta] 3 tab PO BEDTIME 12/23/19 Gabapentin Enacarbil [Horizant] 1 tab PO BEDTIME 12/23/19 Hydrocodone/Acetaminophen [Hydrocodone-Acetamin 5-325 mg] 1 tab PO TID PRN 12/23/19 Insulin Detemir [Levemir Flextouch] 25 units SQ BEDTIME 12/23/19 Mirabegron [Myrbetriq] 50 mg PO DAILY 12/23/19 Nebivolol HCl [Bystolic] 10 mg PO BEDTIME 12/23/19 Pravastatin Sodium 1 tab PO BEDTIME 12/23/19 Sitagliptin Phos/Metformin HCl [Janumet 50-1,000 mg Tablet] 1 tab PO BID 12/23/19 Topiramate [Trokendi Xr] 1 cap PO BEDTIME 12/23/19 Topiramate [Trokendi Xr] 1 tab PO DAILY 12/23/19 levoFLOXacin [Levaquin] 750 mg PO DAILY #5 tab 12/25/19 New Medications: levoFLOXacin [Levaquin] 750 mg PO DAILY #5 tab Patient Discharge Instructions: Follow up with PCP within 1 week. Diet: ADA Activity: Ad bar
== END 2019-12-25 10:40 | disposition home or self-care (01) | DRG 603 ==
LOC: ER 20:38 → 4TH 12-23 02:18 → 2ND 12-23 02:28
PROVIDERS: ADMIT Internal Medicine; ATTEND Internal Medicine
DX: L03.213 Periorbital cellulitis (principal); Z68.42 Body mass index [BMI] 45.0-49.9, adult; E66.01 Morbid (severe) obesity due to excess calories; I10 Essential (primary) hypertension; L25.9 Unspecified contact dermatitis, unspecified cause; E11.9 Type 2 diabetes mellitus without complications; Z88.0 Allergy status to penicillin; Z79.4 Long term (current) use of insulin; Z79.891 Long term (current) use of opiate analgesic; Z79.899 Other long term (current) drug therapy; Z90.49 Acquired absence of other specified parts of digestive tract; Z90.710 Acquired absence of both cervix and uterus
CPT/HCPCS: 36415; 70487; 76377; 80048; 80202; 81003; 82947; 83735; 84100; 84132; 85025; 96361; 96365; 99285; J1650; J1815; J2270; J2920; J7030; J7040; Q9967

== ENCOUNTER 2024-09-04 18:53 | Emergency (ER) | payer OTHER ==
[2024-09-04] MEDS ORDERED: NA CHLORIDE 0.9% 1,000 ML ONE ×2 (19:40→19:43)
[2024-09-04 19:53] LABS: Absolute Lymphocytes (CBC) 0.8 K/uL (0.7-4.9); Absolute Monocytes 0.1 K/uL (0.1-1.3); Absolute Neutrophil 8.8 K/uL (1.8-8.0); Basophils % 0.3 % (0-1.3); Eosinophils % 0.1 % (0-4.4); Hematocrit 44.4 % (36.0-45.0); Hemoglobin 14.4 g/dL (12.0-15.0); MCH 28.8 pg (27.0-35.0); MCHC 32.4 g/dL (32.0-36.0); MPV 8.8 fL (7.6-11.3); Monocytes % 0.6 % (3.3-12.3); Platelets 346 thou/uL (152-406); RBC Red Blood Cell Count 4.99 M/uL (3.86-4.86); Red Cell Distribution Width 16.8 % (12.1-15.2)
[2024-09-04 20:04] LABS: PT Prothrombin Time 12.8 SECONDS (9.4-12.5); PTT, Activated Partial Thromb 38.9 SECONDS (24.3-36.9); Protime INR 1.22
[2024-09-04 20:11] LABS: Specific Gravity > 1.030 (1.005-1.030); Sqamous Epithelial <5 /HPF (None Seen); Urine Bacteria None Seen /HPF (<20); Urine Bilirubin NEGATIVE (Negative); Urine Blood Negative (Negative); Urine Clarity Clear (Clear); Urine Color Light-Yellow (Yellow); Urine Culture Reflex Order NOT NEEDED; Urine Glucose 4+ (Over) (Negative); Urine Ketones 2+ (Negative); Urine Microscopic Reflex YN ORDER UMIC; Urine Nitrite NEGATIVE (Negative); Urine Protein NEGATIVE (Negative); Urine RBC <5 /HPF (None Seen); Urine Urobilinogen 1+ (Normal); Urine WBC <5 /HPF (<5); Urine pH 6.5 (5.0-7.0)
[2024-09-04 20:12] LABS: ALT/SGPT 47 U/L (13-56); AST/SGOT 36 U/L (15-37); Albumin 3.1 g/dL (3.4-5.0); Albumin/Globulin Ratio 0.7 (1.1-1.8); Alkaline Phosphatase 136 U/L (45-117); Anion Gap 12.1 mEq/L (5.0-15.0); BUN Blood Urea Nitrogen 11 mg/dL (7-18); Bicarbonate 19 mEq/L (21-32); Bilirubin Total 0.4 mg/dL (0.2-1.0); Globulin 4.7 g/dL (2.3-3.5); Glomerular Filtration Rate 69 ml/min (=/>90); Glucose Level 358 mg/dL (74-106); Potassium 3.1 mEq/L (3.5-5.1); Protein, Total 7.8 g/dL (6.4-8.2); Sodium Level 136 mEq/L (136-145)
[2024-09-04 20:13] LABS: Bilirubin Direct < 0.2 mg/dL (0-0.2); Bilirubin Indirect, Calculated 0.2 mg/dL (0.2-0.8)
[2024-09-04 20:17] LABS: Barbiturates NEGATIVE (NEGATIVE); Benzodiazepines NEGATIVE (NEGATIVE); Cocaine NEGATIVE (NEGATIVE); METHAMPHETAM NEGATIVE (NEGATIVE); Methadone NEGATIVE (NEGATIVE); Opiates NEGATIVE (NEGATIVE); Phencyclidine NEGATIVE (NEGATIVE); THC Cannibis NEGATIVE (NEGATIVE)
[2024-09-04 20:51] LABS: Blood Morphology Comment NOT SEEN (NOT SEEN); Platelet Estimate ADEQ; White Blood Cell Scan OK (OK)
--- NOTE | 2024-09-04 23:23 | EDPHYS ---
Physician Documentation [facility] Name: Romana Canales Age: 54 yrs Sex: Female : 1970 Arrival Date: 09/04/2024 Time: 18:53 Bed 3 Private MD: ED Physician Jason Garza HPI: 09/04 20:16 This 54 yrs old Female presents to ER via Wheelchair with complaints of High Blood rt sugar. 20:16 Patient presents to the ED with hyperglycemia on her Dexcom over 400. She received rt steroid injections in her neck today, states that her blood sugar was normal before that. Patient reports feeling fatigued but denies other physical complaints. Of note, patient reportedly from her , is reporting suicidal ideation without a plan. Denies other acute complaints at this time, symptoms are moderate in severity, no other aggravating alleviating factors.. 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 - Infectious Disease History:: Denies. - Social history:: Smoking status: Patient denies any tobacco usage or history of. - Family history:: not pertinent. ROS: 20:16 Constitutional: Negative for fever, chills, and weight loss, Eyes: Negative for injury, rt pain, redness, and discharge, Cardiovascular: Negative for chest pain, palpitations, and edema, Respiratory: Negative for shortness of breath, cough, wheezing, and pleuritic chest pain, Abdomen/GI: Negative for abdominal pain, nausea, vomiting, diarrhea, and constipation, MS/Extremity: Negative for injury and deformity, Skin: Negative for injury, rash, and discoloration, 20:16 Psych: Positive for suicidal ideation, 09/05 00:19 All other systems are negative, sp4 Exam: 09/04 20:16 Constitutional: This is a well developed, well nourished patient who is awake, alert, rt and in no acute distress. Head/Face: Normocephalic, atraumatic. Chest/axilla: Normal chest wall appearance and motion. Nontender with no deformity. No lesions are appreciated. Cardiovascular: Regular rate and rhythm with a normal S1 and S2. No gallops, murmurs, or rubs. Normal PMI, no JVD. No pulse deficits. Respiratory: Lungs have equal breath sounds bilaterally, clear to auscultation and percussion. No rales, rhonchi or wheezes noted. No increased work of breathing, no retractions or nasal flaring. Abdomen/GI: Soft, non-tender, with normal bowel sounds. No distension or tympany. No guarding or rebound. No evidence of tenderness throughout. Skin: Warm, dry with normal turgor. Normal color with no rashes, no lesions, and no evidence of cellulitis. MS/ Extremity: Pulses equal, no cyanosis. Neurovascular intact. Full, normal range of motion. Neuro: Awake and alert, GCS 15, oriented to person, place, time, and situation. Cranial nerves II-XII grossly intact. Motor strength 5/5 in all extremities. Sensory grossly intact. Cerebellar exam normal. Normal gait. ECG was reviewed by the Attending Physician. Vital Signs: 19:07 BP 142 / 76; Pulse 95; Resp 19; Temp 98.5(O); Pulse Ox 96% on R/A; Weight 129.73 kg; ap3 Height 5 ft. 2 in. ; 19:30 BP 125 / 77; Pulse 97; Resp 18; Pulse Ox 97% ; ay 20:00 BP 125 / 64; Pulse 90; Resp 17; Pulse Ox 94% ; ay 20:30 BP 141 / 72; Pulse 96; Resp 18; Pulse Ox 100% ; ay 21:00 BP 102 / 45; Pulse 83; Resp 21; Pulse Ox 99% on R/A; al5 21:30 BP 111 / 46; Pulse 85; Resp 21; Pulse Ox 100% on R/A; al5 22:00 BP 133 / 78; Pulse 84; Resp 16; Pulse Ox 98% on R/A; al5 22:30 BP 124 / 74; Pulse 85; Resp 16; Pulse Ox 100% on R/A; al5 19:07 Body Mass Index 52.31 (129.73 kg, 157.48 cm) ap3 NIH Stroke Scale Scores: 09/05 00:19 NIHSS Score: 0 sp4 Robert Coma Score: 09/04 19:56 Eye Response: spontaneous(4). Motor Response: obeys commands(6). Verbal Response: ay oriented(5). Total: 15. 09/05 00:19 Eye Response: spontaneous(4). Motor Response: obeys commands(6). Verbal Response: sp4 oriented(5). Total: 15. MDM: 09/04 19:14 Medical Screening Exam initiated rt 09/05 00:20 Differential Diagnosis altered mental status, sepsis, flu. Data reviewed: vital signs, sp4 nurses notes, lab test result(s). 05:19 Consideration of Admission/Observation Escalation of care including sp4 admission/observation considered. ED course: Patient was questioned about her depression. Patient reports she has no thoughts of self-harm. Denies suicidal plan, denied homicidal ideation or plan. Patient deemed stable for discharge home. Patient was offered emergent transfer to [place] for psychiatric assessment, but patient declines and reports that she would like to go home , again she voices no thoughts of suicide. 09/04 19:22 Order name: Acetaminophen; Complete Time: 22:23 rt 09/04 19:22 Order name: Basic Metabolic Panel; Complete Time: 22:23 rt 09/04 19:22 Order name: CBC with Diff; Complete Time: 22:23 rt 09/04 19:22 Order name: ETOH Level; Complete Time: 22:23 rt 09/04 19:22 Order name: Hepatic Function; Complete Time: 22:23 rt 09/04 19:22 Order name: PT-INR; Complete Time: 22:23 rt 09/04 19:22 Order name: Ptt, Activated; Complete Time: 22:23 rt 09/04 19:22 Order name: Salicylate; Complete Time: 22:23 rt 09/04 19:22 Order name: Urinalysis w/ reflexes; Complete Time: 22:23 rt 09/04 19:22 Order name: Urine Drug Screen; Complete Time: 22:23 rt 09/04 19:53 Order name: Glucose, Ancillary Testing; Complete Time: 22:23 EDMS 09/04 20:52 Order name: CBC Smear Scan; Complete Time: 22:23 EDMS 09/04 22:52 Order name: Glucose, Ancillary Testing; Complete Time: 23:19 EDMS 09/04 19:22 Order name: EKG - Nurse/Tech; Complete Time: 19:42 rt 09/04 19:22 Order name: IV Saline Lock; Complete Time: 19:42 rt 09/04 19:22 Order name: Labs collected and sent; Complete Time: 19:42 rt 09/04 19:22 Order name: Suicide Screening (Dominique); Complete Time: 19:55 rt 09/04 22:52 Order name: Accucheck Blood Glucose; Complete Time: 23:02 sp4 EC/20 20:16 Rate is 96 beats/min. Rhythm is regular, Normal Sinus Rhythm with No ectopy, LVH rt present. Left axis deviation noted. DC interval is normal. QRS interval is normal. QT interval is prolonged at 502 msec. No Q waves. T waves are Normal. No ST changes noted. Interpreted by me. Administered Medications: 19:43 Drug: NS 0.9% IV 2000 ml IV at 2000 ml once; to be given as a bolus over 60 minutes ay Route: IV; Rate: 2000 ml; Site: right antecubital; 22:40 Follow up: Response: No adverse reaction; IV Status: Completed infusion; IV Intake: al5 2000ml Disposition Summary: 09/04/24 23:22 Discharge Ordered Notes: Location: Home sp4 Problem: new sp4 Symptoms: have improved sp4 Condition: Stable sp4 Diagnosis - Type 2 diabetes mellitus with hyperglycemia sp4 - Glucocorticoid induced hyperglycemia, generalized weakness, exacerbation of sp4 chronic depression Followup: sp4 - With: Private Physician - When: 7 - 10 days - Reason: Recheck today's complaints Discharge Instructions: - Discharge Summary Sheet sp4 - Joint Steroid Injection sp4 Forms: - Patient Portal Instructions sp4 NIH Stroke Scale - NIH Stroke Score Date: 09/05/2024 Time: 00:19 Total Score = 0 10. Dysarthria (speech clarity - read or repeat words) - 0(Normal) 11. Extinction and Inattention (visual/tactile/auditory/spatial/personal) - 0(No abnormality) 1a. Level of Consciousness (LOC) - 0(Alert) 1b. Level of Consciousness (LOC) (Month \T\ Age) - 0(Both) 1c. LOC Commands (Open \T\ Closes Eyes/Operations Research Analyst) - 0(Both) 2. Best Gaze (Lateral Gaze Paresis) - 0(Normal) 3. Visual Field Loss - 0(No visual loss) 4. Facial Palsy - 0(Normal) 5a. Left Arm: Motor (10-second hold) - 0(No drift) 5b. Right Arm: Motor (10-second hold) - 0(No drift) 6a. Left Leg: Motor (5-second hold - always test supine) - 0(No drift) 6b. Right Leg: Motor (5-second hold - always test supine) - 0(No drift) 7. Limb Ataxia (finger/nose \T\ heel/bartlett - test with eyes open) - 0(Absent) 8. Sensory Loss (pinprick arms/legs/face) - 0(Normal) 9. Best Language: Aphasia (description/naming/reading) - 0(No aphasia) Initials: sp4 Signatures: Dispatcher [employer] Randee Good RN RN ap3 Josh Owen MD MD rt Jason Garza MD MD sp4 Elza Rajan RN RN ay Langhorst, Amanda RN al5
--- NOTE | 2024-09-04 23:23 | ER ---
Nurse's Notes [facility] Name: Romana Canales Age: 54 yrs Sex: Female : 1970 Arrival Date: 09/04/2024 Time: 18:53 Bed 3 Private MD: Diagnosis: Type 2 diabetes mellitus with hyperglycemia;Glucocorticoid induced hyperglycemia, generalized weakness, exacerbation of chronic depression Presentation: 09/04 19:07 Chief complaint: Spouse and/or significant other states: the patient had steroid shots ap3 in her neck at 0900 this morning at [facility]. since then patient complains of elevated blood sugars and "not feeling right". patient states her blood sugars have been between 350-400. patient states she has been feeling weak, and like she is speaking slow. Coronavirus screen: At this time, the client does not indicate any symptoms associated with coronavirus-19. Ebola Screen: No symptoms or risks identified at this time. Initial Sepsis Screen: Does the patient meet any 2 criteria? HR > 90 bpm. Does the patient have a suspected source of infection? No. Patient's initial sepsis screen is negative. Risk Assessment: Do you want to hurt yourself or someone else? Other: pulled nurse aside during triage and reported to nurse that they have recently . states he is concerned because the patient has made comments about self harm, and he is worried about potential overdose. Onset of symptoms was September 04, 2024. 19:07 Method Of Arrival: Wheelchair ap3 19:07 Acuity: SEFERINO 2 ap3 Triage Assessment: 19:22 General: Appears uncomfortable, Behavior is calm, cooperative, flat. Pain: Denies pain. ap3 Neuro: Level of Consciousness is awake, alert, obeys commands, Oriented to person, place, time, situation, Speech slow to speak, but answers appropriately . Reports weakness. Cardiovascular: Patient's skin is warm and dry. Respiratory: Airway is patent Respiratory effort is even, unlabored. 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 - Infectious Disease History:: Denies. - Social history:: Smoking status: Patient denies any tobacco usage or history of. - Family history:: not pertinent. Screenin:23 Abuse screen: Denies threats or abuse. Nutritional screening: No deficits noted. ap3 Tuberculosis screening: No symptoms or risk factors identified. 19:56 [facility] ED Fall Risk Assessment (Adult) History of falling in the last 3 months, ay including since admission No falls in past 3 months (0 pts) Confusion or Disorientation No (0 pts) Intoxicated or Sedated No (0 pts) Impaired Gait No (0 pts) Mobility Assist Device Used No (0 pt) Altered Elimination No (0 pt) Score/Fall Risk Level 0 - 2 = Low Risk Oriented to surroundings, Maintained a safe environment, Educated pt \\T\\ family on fall prevention, incl call for assistance when getting out of bed, Assessed \\T\\ reinforced patient's understanding of fall precautions. Assessment: 19:56 General: Appears in no apparent distress. comfortable, Behavior is calm, cooperative. ay Pain: Complains of pain in epigastric Pain currently is 4 out of 10 on a pain scale. Neuro: Level of Consciousness is awake, alert, obeys commands, Oriented to person, place, time, situation, Speech is normal. Cardiovascular: Capillary refill < 3 seconds Patient's skin is warm and dry. Rhythm is sinus rhythm. Respiratory: Airway is patent Respiratory effort is even, unlabored, Respiratory pattern is regular, symmetrical. GI: Abd is soft and non tender X 4 quads. Reports epigastric pain, nausea. : No signs and/or symptoms were reported regarding the genitourinary system. EENT: No signs and/or symptoms were reported regarding the EENT system. Derm: No signs and/or symptoms reported regarding the dermatologic system. Musculoskeletal: No signs and/or symptoms reported regarding the musculoskeletal system. 20:47 Reassessment: Patient appears in no apparent distress at this time. No changes from al5 previously documented assessment. Patient and/or family updated on plan of care and expected duration. Pain level reassessed. Patient is alert, oriented x 3, equal unlabored respirations, skin warm/dry/pink. 21:41 Reassessment: Patient appears in no apparent distress at this time. No changes from al5 previously documented assessment. Patient and/or family updated on plan of care and expected duration. Pain level reassessed. Patient is alert, oriented x 3, equal unlabored respirations, skin warm/dry/pink. 22:39 Reassessment: Patient appears in no apparent distress at this time. No changes from al5 previously documented assessment. Patient and/or family updated on plan of care and expected duration. Pain level reassessed. Patient is alert, oriented x 3, equal unlabored respirations, skin warm/dry/pink. per ER provider, patient safe to discharge home and follow up with outpatient Patient states feeling better. Vital Signs: 19:07 BP 142 / 76; Pulse 95; Resp 19; Temp 98.5(O); Pulse Ox 96% on R/A; Weight 129.73 kg; ap3 Height 5 ft. 2 in. ; 19:30 BP 125 / 77; Pulse 97; Resp 18; Pulse Ox 97% ; ay 20:00 BP 125 / 64; Pulse 90; Resp 17; Pulse Ox 94% ; ay 20:30 BP 141 / 72; Pulse 96; Resp 18; Pulse Ox 100% ; ay 21:00 BP 102 / 45; Pulse 83; Resp 21; Pulse Ox 99% on R/A; al5 21:30 BP 111 / 46; Pulse 85; Resp 21; Pulse Ox 100% on R/A; al5 22:00 BP 133 / 78; Pulse 84; Resp 16; Pulse Ox 98% on R/A; al5 22:30 BP 124 / 74; Pulse 85; Resp 16; Pulse Ox 100% on R/A; al5 19:07 Body Mass Index 52.31 (129.73 kg, 157.48 cm) ap3 Meyers Chuck Coma Score: 19:56 Eye Response: spontaneous(4). Motor Response: obeys commands(6). Verbal Response: ay oriented(5). Total: 15. 09/05 00:19 Eye Response: spontaneous(4). Motor Response: obeys commands(6). Verbal Response: sp4 oriented(5). Total: 15. NIH Stroke Scale Scores: 00:19 NIHSS Score: 0 sp4 ED Course: 09/04 18:55 Patient arrived in ED. mr 19:07 Josh Owen MD is Attending Physician. rt 19:20 Triage completed. ap3 19:23 Client placed on continuous cardiac and pulse oximetry monitoring. NIBP monitoring ap3 applied. shelter monitor on. Pulse ox on. NIBP on. 19:23 Patient has correct armband on for positive identification. Bed in low position. Call ap3 light in reach. Side rails up X2. 19:23 Arm band placed on right wrist. ap3 19:39 Elza Rajan, RN is Primary Nurse. ay 20:00 Provided Education on: plan of care. al5 20:04 Inserted saline lock: 20 gauge in right antecubital area, using aseptic technique. oe Blood collected. Flushed with 10 mL NS. 20:05 EKG done, by ED staff, reviewed by Josh Owen MD. oe 20:05 Acetaminophen Sent. oe 20:05 Basic Metabolic Panel Sent. oe 20:05 ETOH Level Sent. oe 20:05 Hepatic Function Sent. oe 20:05 Salicylate Sent. oe 20:05 Urinalysis w/ reflexes Sent. oe 20:05 Urine Drug Screen Sent. oe 20:07 Attending Physician role handed off by Josh Owen MD sp4 20:07 Jason Garza MD is Attending Physician. sp4 21:02 No provider procedures requiring assistance completed. al5 23:57 IV discontinued, intact, bleeding controlled, No redness/swelling at site. Pressure br2 dressing applied. Administered Medications: 19:43 Drug: NS 0.9% IV 2000 ml IV at 2000 ml once; to be given as a bolus over 60 minutes ay Route: IV; Rate: 2000 ml; Site: right antecubital; 22:40 Follow up: Response: No adverse reaction; IV Status: Completed infusion; IV Intake: al5 2000ml Medication: 21:02 VIS not applicable for this client. al5 Intake: 22:40 IV: 2000ml; Total: 2000ml. al5 Outcome: 23:22 Discharge ordered by . sp4 23:57 Discharged to home via wheelchair, br2 23:57 Condition: stable 23:57 Discharge instructions given to patient, Instructed on discharge instructions, follow up and referral plans. Demonstrated understanding of instructions, follow-up care, medications, 23:57 Patient left the ED. br2 NIH Stroke Scale - NIH Stroke Score Date: 09/05/2024 Time: 00:19 Total Score = 0 10. Dysarthria (speech clarity - read or repeat words) - 0(Normal) 11. Extinction and Inattention (visual/tactile/auditory/spatial/personal) - 0(No abnormality) 1a. Level of Consciousness (LOC) - 0(Alert) 1b. Level of Consciousness (LOC) (Month \\T\\ Age) - 0(Both) 1c. LOC Commands (Open \\T\\ Closes Eyes/Motor Pool Clerk) - 0(Both) 2. Best Gaze (Lateral Gaze Paresis) - 0(Normal) 3. Visual Field Loss - 0(No visual loss) 4. Facial Palsy - 0(Normal) 5a. Left Arm: Motor (10-second hold) - 0(No drift) 5b. Right Arm: Motor (10-second hold) - 0(No drift) 6a. Left Leg: Motor (5-second hold - always test supine) - 0(No drift) 6b. Right Leg: Motor (5-second hold - always test supine) - 0(No drift) 7. Limb Ataxia (finger/nose \\T\\ heel/bartlett - test with eyes open) - 0(Absent) 8. Sensory Loss (pinprick arms/legs/face) - 0(Normal) 9. Best Language: Aphasia (description/naming/reading) - 0(No aphasia) Initials: sp4 Signatures: Latia Parish, Reg Reg mr Marco Rios oe Randee Mane, ALISON RN ap3 Josh Owen MD MD rt Jason Garza MD MD sp4 Randee Burdick RN RN al5 Terrie Garcia RN RN br2 Elza Rajan RN RN ay Corrections: (The following items were deleted from the chart) 22:42 22:39 Reassessment: Patient appears in no apparent distress at this time. No al5 changes from previously documented assessment. Patient and/or family updated on plan of care and expected duration. Pain level reassessed. Patient is alert, oriented x 3, equal unlabored respirations, skin warm/dry/pink. Patient states feeling better. al5
[2024-09-05 21:30] VITALS: TEMP 98.5
[2024-09-05 21:42] VITALS: BP 124/74; O2SAT 100
--- NOTE | 2024-09-08 12:14 | EKG ---
Test Date: 2024-09-04 Test Time: 19:31:27 Portable Trackman: JAIRO MEASUREMENT RESULTS: Intervals: Rate: 96 ND: 152 QRSD: 96 QT: 398 QTc: 502 [place]: P: 27 ND: 152 QRS: -7 T: 135 INTERPRETIVE STATEMENTS: Normal sinus rhythm Left ventricular hypertrophy with repolarization abnormality Prolonged QT Abnormal ECG Compared to ECG 03/14/2012 11:00:42 Left ventricular hypertrophy now present Early repolarization now present Prolonged QT interval now present Electronically Signed On 09-08-24 12:11:36 ATLASSIAN ADMINISTRATOR by Erick Moss
== END 2024-09-04 23:57 | disposition home or self-care (01) ==
LOC: ER 18:53
DX: E11.65 Type 2 diabetes mellitus with hyperglycemia (principal); T38.0X5A Adverse effect of glucocorticoids and synthetic analogues, initial encounter; F33.1 Major depressive disorder, recurrent, moderate; I10 Essential (primary) hypertension
CPT/HCPCS: 96361; 93005; 85025; 81001; 80048; 36415; 85610; 82947 ×2; 80076; 85730; 80307; 96360; 99285; 80143; 80179; 82077; J7030 ×2